=== PATIENT | female | born 1945 | race Hispanic/Latino ===

== ENCOUNTER 2018-04-02 07:52 | Emergency (ER) | payer MEDICARE ==
[~2018-04-02] VITALS: Ht 162.6 cm; Wt 90.7 kg
[~2018-04-02 07:52] MED LIST: ASPIRIN81 M2 PO; GLYBURIDE2.5 MG PO; LOSARTAN-HCTZ1 EACH PO; NITROSTAT0.4 MG PO; PENTOXIFYLLINE400 MG PO; Z.0.GLYBURIDE5 MG PO; Z.0.LEVOTHYROXINE75 PO; Z.0.LISINOPRIL5 MG; Z.0.PLAVIX75 MG PO; Z.0.SIMVASTATIN10 MG
--- OUTSIDE RECORDS SUMMARY | 2018-04-02 07:54 | XMS REPORT ---
Author [facility] Address Unknown Phone Unavailable Care Team Providers Care Engraver Name Role Phone RAVI ALEMAN Unavailable Unavailable Problems This patient has no known problems. Allergies, Adverse Reactions, Alerts This patient has no known allergies or adverse reactions. Medications This patient has no known medications. Results Test Description Test Time Test Comments Text Results Atomic Results Result Comments CHEST 2 VIEWS [place] [address] Patient Name: GIANNI FLANAGAN MR #: [id number] : 1945 Age/Sex: 72/F Req # : [id number] Adm Physician: Ordered by: RAVI ALEMAN MD Report #: [id number] Location: RAD Room/Bed: Procedure: [id number] DX/CHEST 2 VIEWS Exam Date: 07/18/17 Exam Time: 1745 REPORT STATUS: Signed PROCEDURE: Frontal and lateral views of the chest. COMPARISON: Chest 2 views 12/01/2011. INDICATIONS: COUGH. MID CHEST PAIN FINDINGS: Lines/tubes: None. Lungs: The lungs are well inflated and clear. There is no evidence of pneumonia or pulmonary edema. Pleura: There is no pleural effusion or pneumothorax. Heart and mediastinum: The heart and the mediastinum are normal. Atherosclerotic calcifications. Bones: No acute bony abnormality. Degenerative changes of the thoracic spine. Soft tissues: Surgical clips are present in the neck. IMPRESSION: No acute radiographic abnormality. Dictated by: Tasneem Moura M.D. on 07/18/2017 at 18:16 Electronically approved by: Tasneem Moura M.D. on 07/18/2017 at 18:16 Dictated By: TASNEEM MOURA MD 15 COPY TO: RAVI ALEMAN MD
[2018-04-02] MEDS ORDERED: PANTOPRAZOLE 40 MG 10ML VIAL IV STA (08:19)
[2018-04-02] MEDS ORDERED: SODIUM CHLORIDE 0.9% 1000ML 1,000 ML IV STA (08:19)
[2018-04-02] MEDS ORDERED: ONDANSETRON HCL 4 MG ORAL DISINTEGRATING TAB PO ONE (08:30)
--- NOTE | 2018-04-02 09:12 | Diagnostic Imaging Report ---
EXAM: XR CHEST 1 VIEW DATE: 04/02/2018 8:19 AM INDICATION: Pain COMPARISON: None FINDINGS: Lines and Tubes: None Heart and Mediastinum: No acute findings. Lungs and Pleura: No acute findings. Bones and Soft Tissues: No acute findings. IMPRESSION: 1. No acute cardiopulmonary findings. Signed by: Dr. Carlos Alberto Lo MD on 04/02/2018 9:08 AM
[2018-04-02 10:08] LABS: BASOPHILS % 0.7 % (0.0-1.0); EOSINOPHILS # (AUTO) 0.5 (0.0-0.4); EOSINOPHILS % 8.1 % (0.0-6.0); HEMATOCRIT 40.2 % (34.2-44.1); HEMOGLOBIN 13.2 g/dL (12.0-16.0); LYMPHOCYTES # (AUTO) 1.7 (1.0-3.2); LYMPHOCYTES % 27.2 % (18.0-39.1); MEAN CORPUSCULAR HGB CONC 32.8 g/dL (31-35); MEAN CORPUSCULAR VOLUME 85.2 fL (81-99); MONOCYTES # (AUTO) 0.4 (0.2-0.8); MONOCYTES % 6.8 % (4.4-11.3); NEUTROPHILS # (AUTO) 3.5 (2.1-6.9); NEUTROPHILS % 56.9 % (38.7-80.0); PLATELET COUNT 153 x10e3/uL (140-360); RED BLOOD COUNT 4.72 x10e6/uL (3.6-5.1); RED CELL DISTRIBUTION WIDTH 13.6 % (11.7-14.4)
[2018-04-02 10:23] LABS: INR 1.1; PROTHROMBIN TIME 13.4 seconds (11.9-14.5)
[2018-04-02 10:24] LABS: PARTIAL THROMBOPLASTIN TIME 28.9 seconds (23.8-35.5)
[2018-04-02 10:36] LABS: ALBUMIN 3.3 g/dL (3.5-5.0); ALBUMIN/GLOBULIN RATIO 0.9 (0.8-2.0); ANION GAP 13.2 mmol/L (8-16); CALCIUM 9.7 mg/dL (8.4-10.2); CREATININE, SERUM 1.12 mg/dL (0.57-1.11); POTASSIUM 4.2 mmol/L (3.5-5.1)
[2018-04-02 10:43] LABS: CREATINE KINASE MB 3.8 ng/mL (0-5.0)
[2018-04-02] MEDS ORDERED: DIATRIZOATE MEGL/DIATRIZOA SOD 30 ML BTL PO ONE (11:12)
--- NOTE | 2018-04-02 12:41 | Diagnostic Imaging Report ---
EXAM: CT Abdomen and Pelvis WITHOUT contrast INDICATION: COMPARISON: None. TECHNIQUE: Abdomen and Pelvis was scanned utilizing a multidetector helical scanner without the use of IV contrast. Coronal and sagittal reformations were obtained. IV CONTRAST: None COMPLICATIONS: None RADIATION DOSE: Total DLP: 711 mGy*cm Estimated effective dose: (DLP x 0.015 x size factor) mSv CTDIvol has been reviewed. It is below the limits set by the Radiation Protocol Committee (RPC). FINDINGS: Abdomen: Lung Bases: Atelectasis lung bases. Advanced coronary artery vascular calcifications. Solid Organs: Ill-defined area of decreased attenuation posterior right hepatic lobe best seen axial image 46. Nonenhanced images of adrenals, spleen, and pancreas unremarkable. No renal or ureteral calculi. Upper GI Tract: No small bowel obstructive changes. Vascularity: Advanced aortic and mesenteric vascular calcifications. Lymph Nodes: No suspicious adenopathy. Other: Small fat-containing umbilical hernia. Right iliopsoas atrophic. Pelvis: Bladder: Mild wall thickening. Other: Within limitations of nonenhanced CT, uterus and adnexa grossly unremarkable. Colon: There are a few scattered diverticula with no CT evidence of diverticulitis. Appendix not inflamed. Bones: Degenerative changes, most notably L2-3 endplates. IMPRESSION: 1. No definite acute finding. 2. Advanced vascular calcifications in the coronary arteries, abdominal aorta, and mesenteric arteries. 3. Diverticulosis. 4. Ill-defined hypodensity right hepatic lobe likely similar to 02/10/2012 exam. 5. Interval development right iliopsoas atrophy, etiology uncertain. 6. Mild thickening urinary bladder wall likely due to nondistention. Correlation with urinalysis recommended. Signed by: Dr. Carlos Alberto Lo MD on 04/02/2018 12:37 PM
[2018-04-02 13:25] LABS: BILIRUBIN,URINE NEGATIVE (NEGATIVE); CLARITY,URINE CLEAR (CLEAR); COLOR,URINE YELLOW (YELLOW); KETONES,URINE NEGATIVE (NEGATIVE); LEUKOCYTE ESTERASE ,URINE NEGATIVE (NEGATIVE); NITRITE,URINE NEGATIVE (NEGATIVE); PROTEIN,URINE DIPSTICK NEGATIVE (NEGATIVE); URINE UROBILINOGEN 0.2 mg/dL (0.2 - 1)
[2018-04-02 13:33] LABS: EPITHELIAL CELLS,URINE MODERATE /LPF; WBC,URINE (MAN) 0-5 /HPF (0-5)
[2018-04-02 14:32] VITALS: BP 168/74
== END 2018-04-02 14:44 | disposition home or self-care (01) ==
LOC: ER 07:52
DX: R10.30 Lower abdominal pain, unspecified (principal); R11.0 Nausea; E11.9 Type 2 diabetes mellitus without complications; I51.9 Heart disease, unspecified
CPT/HCPCS: 36415; 71045; 74176; 80053; 81001; 82150; 82550; 82553; 83690; 84484; 85025; 85610; 85730; 87086; 93005; 99284; J7030

== ENCOUNTER 2019-03-10 10:09 | Emergency (ER) | payer MEDICARE ==
--- OUTSIDE RECORDS SUMMARY | 2019-03-10 10:12 | XMS REPORT | Continuity of Care Document ---
Author Author [facility] Interface Address Unknown Phone Unavailable Problems Problem Status Onset Date Classification Date Reported Comments Source 729.5 PAIN IN LIMB Active 05/01/2013 [facility] ABDOMINAL PAIN Active 08/21/2012 [facility] Ankle pain Active Problem 01/04/2016 [facility] CAD Active Problem 01/04/2016 [facility] Leg swelling Active Problem 01/04/2016 [facility] Type 2 diabetes mellitus with hyperglycemia Active Problem 01/04/2016 [facility] Diabetic neuropathy Active Problem 01/04/2016 [facility] Recurrent UTI Active Problem 01/04/2016 [facility] Hypertension Active Problem 01/04/2016 [facility] Urinary frequency Active Problem 01/04/2016 [facility] Hyperlipidemia Active Problem 01/04/2016 [facility] Hypothyroidism Active Problem 01/04/2016 [facility] Vulvar candidiasis Active Diagnosis 01/03/2016 [facility] Medications Medication Details Route Status Patient Instructions Ordering Provider Order Date Source Nitrofurantoin as directed Orally Active 100 MG Orally twice a day Mal 01/03/2016 [facility] Nystatin 1 application to affected area Externally Active 338744 UNIT/GM Externally Twice a day 01/01/2016 [facility] Levemir Flexpen 10 units Subcutaneous Active 100 UNIT/ML Subcutaneous every morning 01/01/2016 [facility] Levothyroxine Sodium 1 tablet Orally Active 25 MCG Orally Once a day 12/10/2015 [facility] Invokamet 1 tablet with meals Orally Active 50-1000 MG Orally Twice a day 12/10/2015 [facility] Gabapentin 1 capsule Orally Active 300 MG Orally twice a day (bid) 12/10/2015 [facility] Atorvastatin Calcium 1 tablet Orally Active 40 mg Orally Once a day 12/10/2015 [facility] Levofloxacin 1 tablet Orally Active 500 MG Orally Once a day 12/07/2015 [facility] Lisinopril-Hydrochlorothiazide 1 tablet Orally Active 10-12.5 MG Orally Once a day 12/03/2015 [facility] Lisinopril 5 Mg Tablet, Active 09/01/2013 [facility] Simvastatin 10 Mg Tablet, Active 09/01/2013 [facility] ciprofloxacin 500 mg oral tablet 500 mg, 1 tab, PO, Q12H, 6 tab, Substitution Allowed, TAB PO Active [facility] 08/22/2012 [facility] influenza virus vaccine, inactivated 0.5 ml, Route: IM, Drug form: INJ, ONCE, Start date: 12/27/06 7:23:00, Stop date: 12/27/06 7:23:00 IM No Longer Active [facility]ent [facility] 0.5 ml, Route: IM, Drug Form: INJ, ONCE, Start date: 12/27/06 7:23:00, Stop date: 12/27/06 7:23:00 IM No Longer Active [facility] Aspirin 81 Mg Tablet Daily Active [facility] Clopidogrel Bisulfate (Plavix) 75 Mg Tablet Daily Active [facility] Glyburide 2.5 Mg Tablet Bedtime Active [facility] Glyburide 5 Mg Tablet Daily Active 1 1/2 TAB QAM [facility] Levothyroxine Sodium 75 Mcg Tablet Daily Active [facility] Losartan/Hydrochlorothiazide (Losartan-Hctz 50-12.5 Mg Tab) 1 Each Tablet Daily Active [facility] Nitroglycerin (Nitrostat) 0.4 Mg Tab.subl as needed Active [facility] Pentoxifylline 400 Mg Tablet.er Twice A Day Active [facility] Allergies, Adverse Reactions, Alerts Substance Category Reaction Severity Reaction type Status Date Reported Comments Source penicillin Adverse Reaction Info Not Available Adverse Reaction Active 01/01/2016 [facility] Penicillin RASH Mild Allergy to Substance Active 04/02/2018 [facility] Immunizations Immunization Date Given Site Status Last Updated Comments Source pneumococcal 23-valent vaccine<sup>1</sup> 12/27/2006 Not Given Tellez 1Result Comment: states last time she had a vaccine it made her sick. Refused despite urging. CHLOÉ Ellis influenza virus vaccine, inactivated 12/27/2006 Not Given Tellez CHLOÉ Ellis Results Order Name Results Value Reference Range Date Interpretation Comments Source Activated partial thromboplastin time (aPTT) in platelet poor plasma bycoagulation assay Activated partial thromboplastin time (aPTT) in platelet poor plasma bycoagulation assay 28.9 23.8 - 35.5 04/02/2018 [facility] Automated blood basophil count (count/volume) Automated blood basophil count (count/volume) 0.0 0.0 - 0.1 04/02/2018 [facility] Automated blood basophil count as percentage of total leukocytes Automated blood basophil count as percentage of total leukocytes 0.7 0.0 - 1.0 04/02/2018 [facility] Automated blood eosinophil count Automated blood eosinophil count 0.5 0.0 - 0.4 04/02/2018 [facility] Automated blood eosinophil count as percentage of total leukocytes Automated blood eosinophil count as percentage of total leukocytes 8.1 0.0 - 6.0 04/02/2018 [facility] Automated blood hematocrit (volume fraction) Automated blood hematocrit (volume fraction) 40.2 34.2 - 44.1 04/02/2018 [facility] Automated blood lymphocyte count as percentage ot total leukocytes Automated blood lymphocyte count as percentage ot total leukocytes 27.2 18.0 - 39.1 04/02/2018 [facility] Automated blood monocyte count as percentage of total leukocytes Automated blood monocyte count as percentage of total leukocytes 6.8 4.4 - 11.3 04/02/2018 [facility] Automated blood neutrophil count Automated blood neutrophil count 3.5 2.1 - 6.9 04/02/2018 [facility] Automated blood platelet count (count/volume) Automated blood platelet count (count/volume) 153 140 - 360 04/02/2018 [facility] Automated blood segmented neutrophil count as percentage of total leukocytes Automated blood segmented neutrophil count as percentage of total leukocytes 56.9 38.7 - 80.0 04/02/2018 [facility] Automated erythrocyte mean corpuscular hemoglobin (mass per erythrocyte) Automated erythrocyte mean corpuscular hemoglobin (mass per erythrocyte) 28.0 28 - 32 04/02/2018 [facility] Automated erythrocyte mean corpuscular hemoglobin concentration measurement (mass/volume) Automated erythrocyte mean corpuscular hemoglobin concentration measurement (mass/volume) 32.8 31 - 35 04/02/2018 [facility] Automated erythrocyte mean corpuscular volume Automated erythrocyte mean corpuscular volume 85.2 81 - 99 04/02/2018 [facility] Blood erythrocytes automated count (number/volume) Blood erythrocytes automated count (number/volume) 4.72 3.6 - 5.1 04/02/2018 [facility] Blood hemoglobin measurement (moles/volume) Blood hemoglobin measurement (moles/volume) 13.2 12.0 - 16.0 04/02/2018 [facility] Blood leukocytes automated count (number/volume) Blood leukocytes automated count (number/volume) 6.14 4.8 - 10.8 04/02/2018 [facility] Blood lymphocytes count (number/volume) Blood lymphocytes count (number/volume) 1.7 1.0 - 3.2 04/02/2018 [facility] Blood monocytes automated count (number/volume) Blood monocytes automated count (number/volume) 0.4 0.2 - 0.8 04/02/2018 [facility] Estimated glomerular filtration rate (GFR) determination Estimated glomerular filtration rate (GFR) determination 48 60 04/02/2018 [facility] Glucose measurement Glucose measurement 194 74 - 118 04/02/2018 [facility] INR in Platelet poor plasma by Coagulation assay INR in Platelet poor plasma by Coagulation assay 1.10 04/02/2018 [facility] Plasma globulin measurement (mass/volume) Plasma globulin measurement (mass/volume) 3.6 2.3 - 3.5 04/02/2018 [facility] Prothrombin time (PT) in platelet poor plasma by coagulation assay Prothrombin time (PT) in platelet poor plasma by coagulation assay 13.4 11.9 - 14.5 04/02/2018 [facility] Serum or plasma alanine aminotransferase measurement (enzymatic activity/volume) Serum or plasma alanine aminotransferase measurement (enzymatic activity/volume) 13 0 - 55 04/02/2018 [facility] Serum or plasma albumin measurement (mass/volume) Serum or plasma albumin measurement (mass/volume) 3.3 3.5 - 5.0 04/02/2018 [facility] Serum or plasma albumin/globulin mass ratio Serum or plasma albumin/globulin mass ratio 0.9 0.8 - 2.0 04/02/2018 [facility] Serum or plasma alkaline phosphatase measurement (enzymatic activity/volume) Serum or plasma alkaline phosphatase measurement (enzymatic activity/volume) 89 40 - 150 04/02/2018 [facility] Serum or plasma amylase measurement (enzymatic activity/volume) Serum or plasma amylase measurement (enzymatic activity/volume) 45 25 - 125 04/02/2018 [facility] Serum or plasma anion gap Serum or plasma anion gap 13.2 8 - 16 04/02/2018 [facility] Serum or plasma calcium measurement (mass/volume) Serum or plasma calcium measurement (mass/volume) 9.7 8.4 - 10.2 04/02/2018 [facility] Serum or plasma carbon dioxide, total measurement (moles/volume) Serum or plasma carbon dioxide, total measurement (moles/volume) 28 22 - 29 04/02/2018 [facility] Serum or plasma chloride measurement (moles/volume) Serum or plasma chloride measurement (moles/volume) 101 98 - 107 04/02/2018 [facility] Serum or plasma creatine kinase MB measurement (mass/volume) Serum or plasma creatine kinase MB measurement (mass/volume) 3.80 0 - 5.0 04/02/2018 [facility] Serum or plasma creatine kinase measurement (enzymatic activity/volume) Serum or plasma creatine kinase measurement (enzymatic activity/volume) 103 29 - 168 04/02/2018 [facility] Serum or plasma creatinine measurement (mass/volume) Serum or plasma creatinine measurement (mass/volume) 1.12 0.57 - 1.11 04/02/2018 [facility] Serum or plasma lipase measurement (enzymatic activity/volume) Serum or plasma lipase measurement (enzymatic activity/volume) 20 8 - 78 04/02/2018 [facility] Serum or plasma potassium measurement (moles/volume) Serum or plasma potassium measurement (moles/volume) 4.2 3.5 - 5.1 04/02/2018 [facility] Serum or plasma protein measurement (mass/volume) Serum or plasma protein measurement (mass/volume) 6.9 6.5 - 8.1 04/02/2018 [facility] Serum or plasma sodium measurement (moles/volume) Serum or plasma sodium measurement (moles/volume) 138 136 - 145 04/02/2018 [facility] Serum or plasma total bilirubin measurement (mass/volume) Serum or plasma total bilirubin measurement (mass/volume) 1.2 0.2 - 1.2 04/02/2018 [facility] Serum or plasma urea nitrogen measurement (mass/volume) Serum or plasma urea nitrogen measurement (mass/volume) 22 7 - 26 04/02/2018 [facility] Serum or plasma urea nitrogen/creatinine mass ratio Serum or plasma urea nitrogen/creatinine mass ratio 20 6 - 25 04/02/2018 [facility] Troponin I measurement by highly sensitive enzyme immunoassay Troponin I measurement by highly sensitive enzyme immunoassay 0.079 0 - 0.300 04/02/2018 [facility] Red Cell Distribution Width 13.6 11.7 - 14.4 04/02/2018 [facility] IM GRANULOCYTES % 0.3 0.0 - 1.0 04/02/2018 [facility] Absolute Immature Granulocyte (auto 0.02 0 - 0.1 04/02/2018 [facility] Aspartate Amino Transf (AST/SGOT) 19 5 - 34 04/02/2018 [facility] Automated urine sediment leukocyte count by microscopy (number/high power field) Automated urine sediment leukocyte count by microscopy (number/high power field) null 0 - 5 04/02/2018 [facility] Bacteria detection in urine sediment by light microscopy Bacteria detection in urine sediment by light microscopy NONE NONE 04/02/2018 [facility] Epithelial cells detection in urine sediment by light microscopy Epithelial cells detection in urine sediment by light microscopy MODERATE NONE 04/02/2018 [facility] Erythrocytes detection in urine sediment by light microscopy Erythrocytes detection in urine sediment by light microscopy NONE 0 - 5 04/02/2018 [facility] Specific gravity of Urine by Test strip Specific gravity of Urine by Test strip 1.025 1.010 - 1.025 04/02/2018 [facility] Urine clarity Urine clarity CLEAR CLEAR 04/02/2018 [facility] Urine color determination Urine color determination YELLOW YELLOW 04/02/2018 [facility] Urine erythrocytes detection Urine erythrocytes detection NEGATIVE NEGATIVE 04/02/2018 [facility] Urine glucose detection Urine glucose detection NEGATIVE NEGATIVE 04/02/2018 [facility] Urine ketones detection by automated test strip Urine ketones detection by automated test strip NEGATIVE NEGATIVE 04/02/2018 [facility] Urine leukocyte esterase detection by dipstick Urine leukocyte esterase detection by dipstick NEGATIVE NEGATIVE 04/02/2018 [facility] Urine nitrite detection Urine nitrite detection NEGATIVE NEGATIVE 04/02/2018 [facility] Urine pH measurement by automated test strip Urine pH measurement by automated test strip 6 5 - 7 04/02/2018 [facility] Urine protein measurement by test strip (mass/volume) Urine protein measurement by test strip (mass/volume) NEGATIVE NEGATIVE 04/02/2018 [facility] Urine total bilirubin measurement (mass/volume) Urine total bilirubin measurement (mass/volume) NEGATIVE NEGATIVE 04/02/2018 [facility] Urine urobilinogen measurement by test strip (mass/volume) Urine urobilinogen measurement by test strip (mass/volume) 0.2 0.2 - 1 04/02/2018 [facility] Lower extremity CTA Lower extremity CTA STUDY: Lower extremity CTA COMPARISON: Bilateral lower extremity arterial duplex US 08/06/13. TECHNIQUE: Contiguous axial images were obtained from the lower abdomen to the feet (runoff) after the administration of intravenous contrast. Non-contrast CT was obtained first of the abdomen and pelvis. Coronal and sagittal MIP images as well as surface rendered images were recreated of the arterial phase images, and are available for review. 3D recons were also performed. DLP: [id number] FINDINGS: VASCULAR: Vascular calcifications are noted throughout. Aorta: Patent without stenosis, dissection, or aneurysmal dilation. Celiac artery: Patent without stenosis or aneurysmal dilation. SMA: Patent without stenosis. Renals: Patient with stenosis. DIALLO: Patent without stenosis. Right: Right common iliac artery: Patent without stenosis. Right hypogastric artery: Patent without stenosis. Right external iliac artery: Patent without stenosis. Right common femoral artery: Mild focal stenosis. Right profunda femoris: patent without stenosis. Right SFA: severe mid stenosis, and moderate to severe multifocal distal stenosis. Right popliteal artery: patent without stenosis. Right TP trunk: mild stenosis. Right AT: occludes distally. Right peroneal: patent without stenosis. Right PT: multifocal skip occlusions. Right DP: reconstitutes and is patent. Left: Left common iliac artery: Patent without stenosis. Left external iliac: Patent without stenosis. Left hypogastric: Patent without stenosis. Left profunda femoris artery: patent without stenosis. Left SFA: multifocal mild stenoses in distal SFA. Left popliteal: moderate popliteal stenosis. Left AT: occludes proximally. Left peroneal: patent without stenosis. Left PT: patent without stenosis. Left DP: reconstitutes and is patent. NON-VASCULAR: The leg soft tissues are unremarkable. The bladder and uterus demonstrate no abnormalities. Sigmoid diverticulosis is identified without evidence of diverticulitis. There is nonspecific bladder wall thickening noted. The uterus and adnexa are unremarkable. There is no adenopathy noted. The osseous structures are unremarkable with mild degenerative change seen at the lumbosacral junction. IMPRESSION: 1. Peripheral vascular disease with severe mid-segment and moderate to severe multifocal distal segment stenosis of the right SFA. Distal right AT occlusion, multifocal PT skip-occlusions and a single vessel runoff via the right peroneal artery. 2. Moderate left popliteal artery stenoses and and left AT proximal occlusion. PT and peroneal runoff is seen to the left foot. 08/15/2013 - - Read by: Stoney Silverman Dictated Date/time: 08/15/13 14:55 Electronically Signed by: Stoney Silverman MD 08/15/13 16:13 FINAL REPORT [facility] [employer] CHEMISTRY Lipase Lvl 117 unit/L 73 - 393 08/22/2012 Normal [facility] CHEMISTRY Amylase Lvl 46 unit/L 25 - 115 08/22/2012 Normal [facility] CHEMISTRY Glucose Lvl 91 mg/dL 70 - 99 08/22/2012 Normal 1Interpretive Data: Adult reference range values reflect the clinical guidelines of the [employer]. [facility] CHEMISTRY BUN 23 mg/dL 7 - 22 08/22/2012 HI [facility] CHEMISTRY Total Protein 7.8 g/dL 6.4 - 8.4 08/22/2012 Normal [facility] CHEMISTRY Albumin Lvl 4.0 g/dL 3.5 - 5.0 08/22/2012 Normal [facility] CHEMISTRY Calcium Lvl 8.9 mg/dL 8.5 - 10.5 08/22/2012 Normal [facility] CHEMISTRY Creatinine Lvl 1.3 mg/dL 0.5 - 1.4 08/22/2012 Normal [facility] CHEMISTRY CO2 26 meq/L 24 - 32 08/22/2012 Normal [facility] CHEMISTRY AST 25 unit/L 0 - 37 08/22/2012 Normal [facility] CHEMISTRY Alk Phos 84 unit/L 39 - 136 08/22/2012 Normal [facility] CHEMISTRY Bili Total 0.7 mg/dL 0.2 - 1.3 08/22/2012 Normal [facility] CHEMISTRY ALT 25 unit/L 0 - 65 08/22/2012 Normal [facility] CHEMISTRY Chloride Lvl 96 meq/L 95 - 109 08/22/2012 Normal [facility] CHEMISTRY Potassium Lvl 4.3 meq/L 3.5 - 5.1 08/22/2012 Normal [facility] CHEMISTRY Sodium Lvl 134 meq/L 135 - 145 08/22/2012 LOW [facility] CHEMISTRY Globulin 3.8 g/dL 2.0 - 4.0 08/22/2012 Normal [facility] CHEMISTRY A/G Ratio 1.1 0.7 - 1.6 08/22/2012 Normal [facility] CHEMISTRY AGAP 16.3 meq/L 10.0 - 20.0 08/22/2012 Normal [facility] CHEMISTRY B/C Ratio 18 6 - 25 08/22/2012 Normal [facility] HEMATOLOGY Monocytes # 0.5 K/CMM 0.0 - 0.8 08/22/2012 Normal [facility] HEMATOLOGY Basophils # 0.0 K/CMM 0.0 - 0.2 08/22/2012 Normal [facility] HEMATOLOGY Lymphocytes # 2.2 K/CMM 1.0 - 5.5 08/22/2012 Normal [facility] HEMATOLOGY Eosinophils # 0.1 K/CMM 0.0 - 0.5 08/22/2012 Normal [facility] HEMATOLOGY Segs 70.5 % 45.0 - 75.0 08/22/2012 Normal [facility] HEMATOLOGY Lymphocytes 22.6 % 20.0 - 40.0 08/22/2012 Normal [facility] HEMATOLOGY Monocytes 5.2 % 2.0 - 12.0 08/22/2012 Normal [facility] HEMATOLOGY Segs-Bands # 7.0 K/CMM 1.5 - 8.1 08/22/2012 Normal [facility] HEMATOLOGY Eosinophils 1.4 % 0.0 - 4.0 08/22/2012 Normal [facility] HEMATOLOGY Basophils 0.3 % 0.0 - 1.0 08/22/2012 Normal [facility] HEMATOLOGY Hgb 13.1 g/dL 12.0 - 16.0 08/22/2012 Normal [facility] HEMATOLOGY MCV 87.3 fL 81.0 - 99.0 08/22/2012 Normal [facility] HEMATOLOGY Hct 38.3 % 36.0 - 48.0 08/22/2012 Normal [facility] HEMATOLOGY RBC 4.39 M/CMM 4.20 - 5.40 08/22/2012 Normal [facility] HEMATOLOGY WBC 9.9 K/CMM 3.7 - 10.4 08/22/2012 Normal [facility] HEMATOLOGY RDW 12.5 % 11.5 - 14.5 08/22/2012 Normal [facility] HEMATOLOGY Platelet 172 K/CMM 133 - 450 08/22/2012 Normal [facility] HEMATOLOGY MPV 8.4 fL 7.4 - 10.4 08/22/2012 Normal [facility] HEMATOLOGY MCHC 34.2 g/dL 32.0 - 36.0 08/22/2012 Normal [facility] HEMATOLOGY MCH 29.9 pg 27.0 - 31.0 08/22/2012 Normal [facility] URINALYSIS UA Nitrite Negative (08/21/2012 19:30:00) Negative 08/22/2012 Normal [facility] URINALYSIS UA Leuk Est Negative (08/21/2012 19:30:00) Negative 08/22/2012 Normal [facility] URINALYSIS UA Ketones Negative *NA* (08/21/2012 19:30:00) Negative 08/22/2012 NA [facility] URINALYSIS UA Glucose Negative (08/21/2012 19:30:00) Negative 08/22/2012 Normal [facility] URINALYSIS UA Blood Negative (08/21/2012 19:30:00) Negative 08/22/2012 Normal [facility] URINALYSIS UA Urobilinogen 0.2 EU/dL 0.1 - 1.0 08/22/2012 Normal [facility] URINALYSIS UA pH 5.5 5.0 - 8.0 08/22/2012 Normal [facility] URINALYSIS UA Spec Grav 1.020 <=1.030 08/22/2012 Normal [facility] URINALYSIS UA Color Yellow *NA* (08/21/2012 19:30:00) Yellow 08/22/2012 NA [facility] URINALYSIS UA Turbidity Clear (08/21/2012 19:30:00) Clear 08/22/2012 Normal [facility] URINALYSIS UA Protein Negative (08/21/2012 19:30:00) Negative 08/22/2012 Normal [facility] URINALYSIS UA RBC 1 /HPF 0 - 2 08/22/2012 Normal [facility] URINALYSIS UA Mucus Few /LPF *NA* (08/21/2012 19:30:00) None Seen 08/22/2012 NA [facility] URINALYSIS UA Bacteria Moderate /HPF *ABN* (08/21/2012 19:30:00) None Seen 08/22/2012 ABN [facility] URINALYSIS UA Hyal Cast 17 /LPF 0 - 2 08/22/2012 HI [facility] URINALYSIS UA Sq Epi Moderate /LPF *ABN* (08/21/2012 19:30:00) Few 08/22/2012 ABN [facility] URINALYSIS UA WBC 2 /HPF 0 - 5 08/22/2012 Normal [facility] URINALYSIS UA Bili Negative (08/21/2012 19:30:00) Negative 08/22/2012 Normal [facility] URINALYSIS Micro? Performed (08/21/2012 19:30:00) 08/22/2012 Normal [facility] Vital Signs Vital Sign Value Date Comments Source Weight 198.4 01/01/2016 [facility] Height 63 01/01/2016 [facility] Temperature Oral (F) 98.4 F 01/01/2016 [facility] Heart Rate 70 01/01/2016 [facility] Diastolic (mm Hg) 81 01/01/2016 [facility] Systolic (mm Hg) 138 01/01/2016 [facility] Weight 196.8 12/10/2015 [facility] Height 63 12/10/2015 [facility] Temperature Oral (F) 98.6 F 12/10/2015 [facility] Heart Rate 80 12/10/2015 [facility] Diastolic (mm Hg) 79 12/10/2015 [facility] Systolic (mm Hg) 135 12/10/2015 [facility] Weight 90.909 08/21/2012 [facility] Height 162.56 cm 08/21/2012 [facility] Encounters Location Location Details Encounter Type Encounter Number Reason For Visit Attending Provider ADM Date DC Date Status Source [facility] Emergency [id number] TERES[facility] ORIENTAL ORTHODOX 08/21/2012 08/21/2012 Active [facility] Primary Care Patient here to est care [id number] 12/03/2015 12/03/2015 [facility] Patient here to est care [id number] 12/03/2015 12/03/2015 [facility] Patient here to est care [id number] 12/03/2015 12/03/2015 [facility] Unknown [id number] 12/07/2015 12/07/2015 [facility] Unknown [id number] 12/07/2015 12/07/2015 [facility] Unknown [id number] 12/07/2015 12/07/2015 [facility] patient here for a folloow up on bp [id number] 12/10/2015 12/10/2015 [facility] patient here for a folloow up on bp [id number] 12/10/2015 12/10/2015 [facility] patient here for a folloow up on bp [id number] 12/10/2015 12/10/2015 [facility] Patient here for diabetes medication,states that it is making her sick. [id number] 01/01/2016 01/01/2016 [facility] Patient here for diabetes medication,states that it is making her sick. [id number] 01/01/2016 01/01/2016 [facility] Patient here for diabetes medication,states that it is making her sick. [id number] 01/01/2016 01/01/2016 [facility] Unknown [id number] 01/03/2016 01/03/2016 [facility] Unknown [id number] 01/03/2016 01/03/2016 [facility] Unknown [id number] 01/03/2016 01/03/2016 [facility] [id number] RAVI ALEMAN MD 07/18/2017 [facility] Departed Emergency Room [id number] BOLA REICH MD 04/02/2018 04/02/2018 [facility] Outpatient [id number] 729.5 PAIN IN LIMB JUDY TROY [facility] Procedures Procedure Code Date Perfomer Comments Source CT of abdomen and pelvis without contrast [id number] 04/02/2018 RACHANA [facility] X-ray of chest, two views [id number] 07/18/2017 LOVE [facility]
--- OUTSIDE RECORDS SUMMARY | 2019-03-10 10:12 | XMS REPORT ---
Author Author Tia Resendez Organization [employer] Address Unknown Phone Unavailable Care Team Providers Care Digital Marketing Strategist Name Role Phone Tia Resendez Unavailable Allergies, Adverse Reactions, Alerts Substance Reaction Event Type penicillin Info Not Available Drug Allergy Encounters Encounter Location Date patient here for a folloow up on bp [facility] Dec 10, 2015 Unknown [facility] Jan 03, 2016 Patient here to [facility] Dec 03, 2015 Unknown [facility] Dec 07, 2015 Patient here for diabetes medication,states that it is making her sick. [facility] Jan 01, 2016 Problems Problem Type Condition ICD-9 Code Onset Dates Condition Status Assessment Type 2 diabetes mellitus with hyperglycemia E11.65 Active Problem Leg swelling M79.89 Active Problem Ankle pain M25.579 Active Problem Diabetic neuropathy E11.40 Active Problem Hyperlipidemia E78.5 Active Problem Type 2 diabetes mellitus with hyperglycemia E11.65 Active Problem Urinary frequency R35.0 Active Problem CAD (coronary artery disease) I25.10 Active Problem Hypothyroidism E03.9 Active Problem Hypertension I10 Active Assessment Hyperlipidemia E78.5 Active Assessment CAD (coronary artery disease) I25.10 Active Assessment Colon cancer screening Z12.11 Active Assessment Hypertension I10 Active Assessment Hypothyroidism E03.9 Active Assessment Diabetic neuropathy E11.40 Active Medications Medication Code System Code Instructions Start Date End Date Status Dosage Atorvastatin Calcium [facility] [address]-85 40 mg Orally Once a day Dec 10, 2015 Active 1 tablet Invokamet [facility] [address]-01 50-1000 MG Orally Twice a day Dec 10, 2015 June 07, 2016 Active 1 tablet with meals Levofloxacin [facility] [address]-97 500 MG Orally Once a day Dec 07, 2015 Dec 17, 2015 Active 1 tablet Gabapentin [facility] [address]-75 300 MG Orally twice a day (bid) Dec 10, 2015 Active 1 capsule Levothyroxine Sodium [facility] [address]-33 25 MCG Orally Once a day Dec 10, 2015 Active 1 tablet Lisinopril-Hydrochlorothiazide [facility] [address]-88 10-12.5 MG Orally Once a day Dec 03, 2015 Active 1 tablet Social History Social History Element Qualifiers Date Reported Tobacco Use: . Are you a: never smoker Jan 01, 2016 Use of recreational / street drugs? . Answer: No Jan 01, 2016 Do you have pets? . Status: No Jan 01, 2016 Caffeine intake? . Status: Yes, What type: Coffee, Soft Drinks, How often? Daily Jan 01, 2016 Do you exercise? . Answer: Yes, Type: walking, How often? Daily Jan 01, 2016 Do you drink alcohol? . Status: No Jan 01, 2016 Vital Signs Date/Time: Dec 10, 2015 Weight 196.8 lbs Height 63 in Temperature 98.6 F Cardiac Monitoring Heart Rate 80 /min Blood Pressure Diastolic 79 mm Hg Blood Pressure Systolic 135 mm Hg Summary Purpose [employer] Submission
--- OUTSIDE RECORDS SUMMARY | 2019-03-10 10:12 | XMS REPORT ---
Author Author Tia Resendez Organization [employer] Address Unknown Phone Unavailable Care Team Providers Care Manager Adobe Name Role Phone Tia Resendez Unavailable Encounters Encounter Location Date patient here for a folloow up on bp [facility] Dec 10, 2015 Unknown [facility] Jan 03, 2016 Patient here to [facility] Dec 03, 2015 Unknown [facility] Dec 07, 2015 Patient here for diabetes medication,states that it is making her sick. [facility] Jan 01, 2016 Problems Problem Type Condition ICD-9 Code Onset Dates Condition Status Problem Ankle pain M25.579 Active Problem CAD (coronary artery disease) I25.10 Active Problem Leg swelling M79.89 Active Problem Type 2 diabetes mellitus with hyperglycemia E11.65 Active Problem Diabetic neuropathy E11.40 Active Problem Recurrent UTI N39.0 Active Problem Hypertension I10 Active Problem Urinary frequency R35.0 Active Problem Hyperlipidemia E78.5 Active Problem Hypothyroidism E03.9 Active Medications Medication Code System Code Instructions Start Date End Date Status Dosage Nitrofurantoin [facility] [address]-98 100 MG Orally twice a day Jan 03, 2016 Active as directed Social History Social History Element Qualifiers Date [...] alcohol? . Status: No Jan 01, 2016 Summary Purpose [employer] Submission
--- OUTSIDE RECORDS SUMMARY | 2019-03-10 10:12 | XMS REPORT | CCD ---
Author Author Auto Generated Organization [facility] Address Unknown Phone Unavailable Care Team Providers Care Salt Cutter Name Role Phone Theresa Velasquez CP Allergies, Adverse Reactions, Alerts Substance Reaction Status penicillin Active Medications Medication Instructions Start Date End Date Status influenza virus 0.5 ml, Route: IM, Drug form: INJ, 12/27/2006 12/27/2006 Completed vaccine, inactivated ONCE, Start date: 12/27/06 7:23:00, Stop date: 12/27/06 7:23:00 pneumococcal 0.5 ml, Route: IM, Drug Form: INJ, 12/27/2006 12/27/2006 Completed 23-valent vaccine ONCE, Start date: 12/27/06 7:23:00, Stop date: 12/27/06 7:23:00 ciprofloxacin 500 mg 500 mg, 1 tab, PO, Q12H, 6 tab, 08/21/2012 08/24/2012 Ordered oral tablet Substitution Allowed, TAB Immunizations Vaccine Date Status influenza virus vaccine, inactivated 12/27/2006 Not Done pneumococcal 23-valent vaccine1 12/27/2006 Not Done 1Result Comment: states last time she had a vaccine it made her sick. Refused despite urging. Vital Signs Most recent to oldest [Reference Range]: 1 Height 162.56 cm (08/21/2012 18:44:00) Weight 90.909 kg (08/21/2012 18:44:00) Results URINALYSIS Most recent to oldest [Reference Range]: 1 UA Turbidity [Clear] Clear (08/21/2012 19:30:00) UA Color [Yellow] Yellow *NA* (08/21/2012 19:30:00) UA pH [5.0-8.0] 5.5 (08/21/2012 19:30:00) UA Spec Grav [<=1.030] 1.020 (08/21/2012 19:30:00) UA Glucose [Negative] Negative (08/21/2012 19:30:00) UA Blood [Negative] Negative (08/21/2012 19:30:00) UA Ketones [Negative] Negative *NA* (08/21/2012 19:30:00) UA Protein [Negative] Negative (08/21/2012 19:30:00) UA Urobilinogen [0.1-1.0 EU/dL] 0.2 EU/dL (08/21/2012 19:30:00) UA Bili [Negative] Negative (08/21/2012 19:30:00) UA Leuk Est [Negative] Negative (08/21/2012 19:30:00) UA Nitrite [Negative] Negative (08/21/2012 19:30:00) UA WBC [0-5 /HPF] 2 /HPF (08/21/2012:30:00) UA RBC [0-2 /HPF] 1 /HPF (08/21/2012 19:30:00) UA Bacteria [None Seen /HPF] Moderate /HPF *ABN* (08/21/2012 19:30:00) UA Sq Epi [Few /LPF] Moderate /LPF *ABN* (08/21/2012 19:30:00) UA Hyal Cast [0-2 /LPF] 17 /LPF *HI* (08/21/2012 19:30:00) UA Mucus [None Seen /LPF] Few /LPF *NA* (08/21/2012 19:30:00) Micro? Performed (08/21/2012 19:30:00) CHEMISTRY Most recent to oldest [Reference Range]: 1 Sodium Lvl [135-145 mEq/L] 134 mEq/L *LOW* (08/21/2012 20:34:00) Potassium Lvl [3.5-5.1 mEq/L] 4.3 mEq/L (08/21/2012 20:34:00) Chloride Lvl [95-109 mEq/L] 96 mEq/L (08/21/2012 20:34:00) CO2 [24-32 mEq/L] 26 mEq/L (08/21/2012 20:34:00) AGAP [10.0-20.0 mEq/L] 16.3 mEq/L (08/21/2012 20:34:00) Creatinine Lvl [0.5-1.4 mg/dL] 1.3 mg/dL (08/21/2012 20:34:00) BUN [7-22 mg/dL] 23 mg/dL *HI* (08/21/2012:34:00) B/C Ratio [6-25] 18 (08/21/2012 20:34:00) Glucose Lvl [70-99 mg/dL] 91 mg/dL 1 (08/21/2012:34:00) Total Protein [6.4-8.4 g/dL] 7.8 g/dL (08/21/2012:34:00) Albumin Lvl [3.5-5.0 g/dL] 4.0 g/dL (08/21/2012:34:00) Globulin [2.0-4.0 g/dL] 3.8 g/dL (08/21/2012:34:00) A/G Ratio [0.7-1.6] 1.1 (08/21/2012:34:00) Calcium Lvl [8.5-10.5 mg/dL] 8.9 mg/dL (08/21/2012 20:34:00) ALT [0-65 unit/L] 25 unit/L (08/21/2012:34:00) AST [0-37 unit/L] 25 unit/L (08/21/2012:34:00) Alk Phos [39-136 unit/L] 84 unit/L (08/21/2012:34:00) Bili Total [0.2-1.3 mg/dL] 0.7 mg/dL (08/21/2012:34:00) Amylase Lvl [25-115 unit/L] 46 unit/L (08/21/2012:34:00) Lipase Lvl [73-393 unit/L] 117 unit/L (08/21/2012:34:00) 1Interpretive Data: Adult reference range values reflect the clinical guidelines of the [employer]. HEMATOLOGY Most recent to oldest [Reference Range]: 1 WBC [3.7-10.4 K/CMM] 9.9 K/CMM (08/21/2012 20:34:00) RBC [4.20-5.40 M/CMM] 4.39 M/CMM (08/21/2012 20:34:00) Hgb [12.0-16.0 g/dL] 13.1 g/dL (08/21/2012 20:34:00) Hct [36.0-48.0 %] 38.3 % (08/21/2012 20:34:00) MCV [81.0-99.0 fL] 87.3 fL (08/21/2012 20:34:00) MCH [27.0-31.0 pg] 29.9 pg (08/21/2012 20:34:00) MCHC [32.0-36.0 g/dL] 34.2 g/dL (08/21/2012:34:00) RDW [11.5-14.5 %] 12.5 % (08/21/2012 20:34:00) Platelet [133-450 K/CMM] 172 K/CMM (08/21/2012:34:00) MPV [7.4-10.4 fL] 8.4 fL (08/21/2012 20:34:00) Segs [45.0-75.0 %] 70.5 % (08/21/2012 20:34:00) Lymphocytes [20.0-40.0 %] 22.6 % (08/21/2012 20:34:00) Monocytes [2.0-12.0 %] 5.2 % (08/21/2012 20:34:00) Eosinophils [0.0-4.0 %] 1.4 % (08/21/2012 20:34:00) Basophils [0.0-1.0 %] 0.3 % (08/21/2012 20:34:00) Segs-Bands # [1.5-8.1 K/CMM] 7.0 K/CMM (08/21/2012 20:34:00) Lymphocytes # [1.0-5.5 K/CMM] 2.2 K/CMM (08/21/2012 20:34:00) Monocytes # [0.0-0.8 K/CMM] 0.5 K/CMM (08/21/2012 20:34:00) Eosinophils # [0.0-0.5 K/CMM] 0.1 K/CMM (08/21/2012 20:34:00) Basophils # [0.0-0.2 K/CMM] 0.0 K/CMM (08/21/2012 20:34:00)
--- OUTSIDE RECORDS SUMMARY | 2019-03-10 10:12 | XMS REPORT | CCD ---
Author Author Auto Generated Organization [facility] [place] Address Unknown Phone Unavailable Care Team Providers Care Powder Blender Name Role Phone Allan Hare CP Allergies, Adverse Reactions, Alerts Substance Reaction Status penicillin Active Medications Medication Instructions Start Date End Date Status influenza virus 0.5 ml, Route: IM, Drug form: INJ, 12/27/2006 12/27/2006 Completed vaccine, inactivated ONCE, Start date: 12/27/06 7:23:00, Stop date: 12/27/06 7:23:00 pneumococcal 0.5 ml, Route: IM, Drug Form: INJ, 12/27/2006 12/27/2006 Completed 23-valent vaccine ONCE, Start date: 12/27/06 7:23:00, Stop date: 12/27/06 7:23:00 Immunizations Vaccine Date Status influenza virus vaccine, inactivated 12/27/2006 Not Done pneumococcal 23-valent vaccine1 12/27/2006 Not Done 1Result Comment: states last time she had a vaccine it made her sick. Refused despite urging.
--- OUTSIDE RECORDS SUMMARY | 2019-03-10 10:12 | XMS REPORT ---
Author Author Tia Resendez Organization [employer] Address Unknown Phone Unavailable Care Team Providers Care Manager Training And Development Name Role Phone Tia Resendez Unavailable Allergies, Adverse Reactions, Alerts Substance Reaction Event Type penicillin Info Not Available Drug Allergy Encounters Encounter Location Date patient here for a folloow up on bp [facility] Dec 10, 2015 Unknown [facility] Jan 03, 2016 Patient here to [facility] Dec 03, 2015 Unknown [facility] Dec 07, 2015 Patient here for diabetes medication,states that it is making her sick. [facility] Jan 01, 2016 Problems Problem [...] Hyperlipidemia E78.5 Active Problem Hypothyroidism E03.9 Active Assessment Colon cancer screening Z12.11 Active Assessment Vulvar candidiasis B37.3 Active Assessment Hypertension I10 Active Assessment Hypothyroidism E03.9 Active Assessment Recurrent UTI N39.0 Active Assessment Diabetic neuropathy E11.40 Active Assessment Hyperlipidemia E78.5 Active Assessment Type 2 diabetes mellitus with hyperglycemia E11.65 Active Medications Medication Code System Code Instructions Start Date End Date Status Dosage Levothyroxine Sodium [facility] [address]-40 25 MCG Orally Once a day Dec 10, 2015 Active 1 tablet Nystatin [facility] [address]-24 216592 UNIT/GM Externally Twice a day Jan 01, 2016 Jan 16, 2016 Active 1 application to affected area Invokamet [facility] [address]-07 50-1000 MG Orally Twice a day Dec 10, 2015 June 07, 2016 Inactive 1 tablet with meals Lisinopril-Hydrochlorothiazide [facility] [address]-10 10-12.5 MG Orally Once a day Dec 03, 2015 Active 1 tablet Gabapentin [facility] [address]-34 300 MG Orally twice a day (bid) Dec 10, 2015 Active 1 capsule Atorvastatin Calcium [facility] [address]-23 40 mg Orally Once a day Dec 10, 2015 Active 1 tablet Levemir Flexpen [facility] [address]-70 100 UNIT/ML Subcutaneous every morning Jan 01, 2016 Active 10 units Social History Social History Element Qualifiers Date [...] No Jan 01, 2016 Vital Signs Date/Time: Jan 01, 2016 Weight 198.4 lbs Height 63 in Temperature 98.4 F Cardiac Monitoring Heart Rate 70 /min Blood Pressure Diastolic 81 mm Hg Blood Pressure Systolic 138 mm Hg Results UA w/ Reflex to Culture UA Bacteria(-None Seen /HPF) Few UA WBC(-0-5 /HPF) >182 UA Sq Epi(-Few /LPF) Moderate UA Mucus(-None Seen /LPF) Few UA Blood(-Negative ) Small UA Bili(-Negative ) Negative UA Hyal Cast(-0-2 /LPF) 1 UA Ketones(-Negative mg/dL) Negative UA Glucose(-Negative mg/dL) Negative UA Protein(-Negative mg/dL) Negative UA Nitrite(-Negative ) Negative UA Urobilinogen(-0.1-1.0 mg/dL) <=1.0 UA RBC(-0-2 /HPF) 3 UA Leuk Est(-Negative ) Large UA Color(-Yellow ) Yellow UA Turbidity(-Clear ) Marked UA Spec Grav(-<=1.030 ) 1.011 UA pH(-5.0-8.0 ) 6.0 Summary Purpose eClinicalWorks Submission
--- NOTE | 2019-03-10 10:26 | NUR ---
PT AT THE WINDOW STATING SHE IS LEAVING THE ER
== END 2019-03-10 10:26 | disposition left against medical advice (07) ==
LOC: ER 10:09
DX: R20.2 Paresthesia of skin (principal)

== ENCOUNTER 2020-01-13 10:17 | Inpatient (IN) | payer MEDICARE ==
[~2020-01-13] VITALS: Ht 162.6 cm; Wt 86.2 kg
[2020-01-13] MEDS ORDERED: SODIUM CHLORIDE 0.9% 1000ML 1,000 ML IV STA (10:32)
[2020-01-13 10:59] LABS: BASOPHILS % 0.5 % (0.0-1.0); EOSINOPHILS # (AUTO) 0.3 (0.0-0.4); EOSINOPHILS % 3.8 % (0.0-6.0); HEMATOCRIT 41.2 % (34.2-44.1); LYMPHOCYTES # (AUTO) 2.1 (1.0-3.2); LYMPHOCYTES % 23.8 % (18.0-39.1); MEAN CORPUSCULAR HGB CONC 31.6 g/dL (31-35); MEAN CORPUSCULAR VOLUME 85.7 fL (81-99); MONOCYTES # (AUTO) 0.7 (0.2-0.8); MONOCYTES % 7.4 % (4.4-11.3); NEUTROPHILS # (AUTO) 5.7 (2.1-6.9); NEUTROPHILS % 64.3 % (38.7-80.0); PLATELET COUNT 190 x10e3/uL (140-360); RED BLOOD COUNT 4.81 x10e6/uL (3.6-5.1); RED CELL DISTRIBUTION WIDTH 14.2 % (11.7-14.4)
[2020-01-13 11:07] LABS: INR 0.96; PROTHROMBIN TIME 13.4 seconds (11.9-14.5)
[2020-01-13 11:08] LABS: PARTIAL THROMBOPLASTIN TIME 28.1 seconds (23.8-35.5)
[2020-01-13] MEDS ORDERED: MEROPENEM 1GM 100 ML IV STA (11:14)
[2020-01-13] MEDS ORDERED: VANCOMYCIN 1GM/NS 250 ML 250 ML IV STA (11:14)
[2020-01-13 11:15] LABS: ALBUMIN/GLOBULIN RATIO 1.1 (0.8-2.0); ANION GAP 13.4 mmol/L (8-16); CALCIUM 9.9 mg/dL (8.4-10.2); CREATININE, SERUM 1.34 mg/dL (0.57-1.11); MAGNESIUM 1.9 MG/DL (1.3-2.1); POTASSIUM 4.4 mmol/L (3.5-5.1)
--- NOTE | 2020-01-13 11:17 | Diagnostic Imaging Report ---
FOOT RIGHT COMPLETE - 3 views HISTORY: Pain pain. Cellulitis of second toe. Osteomyelitis. COMPARISON: None available. FINDINGS: Bones: No acute displaced fracture. Status post amputation of the third toe. Periarticular osteopenia. Osteopenia involving the third and fourth metatarsal heads. Small calcaneal enthesophyte. Joints: Degenerative changes of the first metatarsal joints. Soft tissues: Vascular calcifications. IMPRESSION: No evidence of acute osteomyelitis. If concern remains, consider further evaluation with MRI examination. Signed by: Dr. Garret Pereira M.D. on 01/13/2020 11:15 AM
[2020-01-13 11:22] LABS: CREATINE KINASE MB 3.2 ng/mL (0-5.0)
[2020-01-13 12:43] LABS: BILIRUBIN,URINE NEGATIVE (NEGATIVE); CLARITY,URINE CLEAR (CLEAR); COLOR,URINE YELLOW (YELLOW); KETONES,URINE NEGATIVE (NEGATIVE); LEUKOCYTE ESTERASE ,URINE NEGATIVE (NEGATIVE); NITRITE,URINE NEGATIVE (NEGATIVE); PROTEIN,URINE DIPSTICK NEGATIVE (NEGATIVE); URINE UROBILINOGEN 0.2 mg/dL (0.2 - 1)
[2020-01-13] MEDS ORDERED: MORPHINE SULFATE 2 MG/ML SYR 1ML IV PRN (12:45)
[2020-01-13] MEDS ORDERED: DEXTROSE 50% SYRINGE 50 ML IV PRN ×2 (12:45→16:15)
[2020-01-13 12:47] LABS: WBC,URINE (MAN) 0-5 /HPF (0-5)
[2020-01-13 12:48] LABS: BACTERIA,URINE FEW /HPF; EPITHELIAL CELLS,URINE FEW /LPF; RBC,URINE 0-5 /HPF (0-5)
[2020-01-13] MEDS ORDERED: CLINDAMYCIN PHOS 900MG/ 50ML 50 ML IV SCH (13:00)
[2020-01-13] MEDS ORDERED: MEROPENEM 1GM 100 ML IV SCH (14:00)
[2020-01-13] MEDS ORDERED: MELATONIN 5 MG TABLET PO PRN (15:15)
[2020-01-13] MEDS ORDERED: BENZONATATE 100 MG CAP PO PRN (15:15)
[2020-01-13] MEDS: INSULIN REGULAR, HUMAN 100 UNIT/1 ML 3ML VIAL SQ SCH ×2 (16:30→21:30)
[2020-01-13 16:42] VITALS: BP 128/58
[2020-01-13] MEDS: SODIUM CHLORIDE 0.9% 1000ML 1,000 ML IV SCH (18:04)
[2020-01-13] MEDS: PENTOXIFYLLINE 400 MG TAB CR PO SCH (18:04)
[2020-01-13] MEDS: ENOXAPARIN SOD INJ 40 MG/0.4 ML SYR SC SCH (18:04)
[2020-01-13 20:00] VITALS: BP 149/83
[2020-01-13] MEDS: MEROPENEM 1GM 100 ML IV SCH (20:53)
--- NOTE | 2020-01-13 22:44 | History and Physical ---
CHIEF COMPLAINT: Right foot pain. HISTORY OF PRESENT ILLNESS: A 74-year-old female, very poor historian. 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 She reports several weeks, but is not even exact on that particular date as well. The patient reports right foot pain, erythema, warm to touch. Severe pain, has been ongoing for the last several weeks. During my evaluation, her right foot was warm to touch. Pulses were palpable, but were very erythematic in nature. Did have some small amount of skin peeling on the medial aspect of the right foot. There was no pain on palpation during my examination. I did evaluate her with the nurse present in the ER. The patient is seen and evaluated at bedside on the medical floor. She is currently doing well with no other issues at this time. Vital signs were stable. Her lactic acid was normal as well. REVIEW OF SYSTEMS: Pertinent positives, right foot pain and erythema. The rest of 14-point review of systems are reviewed with the patient and are negative. ALLERGIES: PENICILLIN MEDICATIONS: 1. Plavix 75 mg daily. 2. Glimepiride 2.5 mg daily. 3. Levothyroxine 75 mcg daily. 4. Pentoxifylline 400 mg p.o. b.i.d. 5. Aspirin 81 mg daily. 6. Losartan/hydrochlorothiazide 50/12.5 mg one tab p.o. daily. 7. Nitroglycerin, sublingual. PAST MEDICAL HISTORY: Hypertension, severe PAD, CAD, diabetes. PAST SURGICAL HISTORY: She has left heart catheterization in the past with stent placement according to the patient. PAST FAMILY HISTORY: Hypertension and diabetes. SOCIAL HISTORY: No drugs. No alcohol. Does not smoke. Good social support. LABORATORY FINDINGS: Show white count 8.9, hemoglobin 13, hematocrit 41, platelets of 190. Coagulation; PT 13, INR 0.96, PTT 28. Chemistry sodium 135, potassium 4.4, chloride 101, bicarb 25, anion gap of 13. BUN is 25, creatinine of 1.34, glucose is 112, lactic acid 1.2, calcium 9.9, magnesium 1.9, total bilirubin was 0.8. AST 22, ALT 33, alkaline phosphatase 88. CK 118, CK-MB 3.2, troponin 0.048, total protein 7.5, albumin is 4. Urinalysis was found to be negative. MICROBIOLOGY: Blood cultures are pending. IMAGING STUDIES: X-ray of the right foot shows no evidence of acute osteomyelitis. MRI was ordered. PHYSICAL EXAMINATION: VITAL SIGNS: Temperature is 97.8, pulse 72, respiratory rate is 16, blood pressure 154/99, pulse ox 100% on room air. GENERAL: Not in acute distress. Alert and oriented x3. Cooperative on examination. HEENT: Head; normocephalic, atraumatic. Eyes; pupils are equal, round, and reactive to light bilaterally. Extraocular movements intact bilaterally. Throat; no evidence of erythema or exudates in the posterior pharynx. Has poor dentition. NECK: Supple. Good range of motion. PULMONARY: Clear to auscultation bilaterally. No wheezing, no rales, no rhonchi, no crackles appreciated. CARDIOVASCULAR: Positive S1 and S2. No murmurs, rubs, or gallops appreciated. ABDOMEN: Soft, nondistended, and nontender to palpation. Bowel sounds present. MUSCULOSKELETAL: Strength is 5/5 throughout. No evidence of any muscle deficits on examination. SKIN: Intact. Warm to touch. Good cap refill. PSYCHIATRIC: Normal affect and mood. EXTREMITIES: Right foot erythema with good palpable pulses, nontender to palpation. It was warm to touch. It was erythematic in nature. IMPRESSION: 1. Right foot cellulitis, but concerning due to severe peripheral artery disease in nature. 2. Type 2 diabetes. 3. History of coronary artery disease with stents. 4. Hypertension. PLAN: At this time, her right foot is warm to touch, palpable pulses are appreciated. It is nontender to palpation during my examination. It seems to be more likely to have ischemia due to severe PAD in the past as well as the patient reports, but her lactic acid is normal. At this time, we will continue to treat this as a possible cellulitis with IV antibiotics. Blood cultures were collected. I also ordered an arterial Doppler and consulted her cycle liaison as he apparently has worked on her lower extremities in the past. I also consulted Podiatry to come and evaluate this foot as well as Infectious Disease. I will resume all her home medications, but hold her ARB and hydrochlorothiazide intervention with an angiogram, which is most likely. MRI of the right foot has been ordered. I put her on insulin sliding scale. I will go ahead and put her on Lovenox for DVT prophylaxis. She is going to be on a heart-healthy diet. I had a long discussion with the patient at bedside about her overall plan of care and she verbalized understanding and agrees with plan of care. Nurse was present throughout the entire conversation in the emergency room. MD DAMON Brito/MODL /[id number]
[2020-01-14] VITALS (8 sets, daily range): BP systolic 138–160; BP diastolic 63–77
[2020-01-14] MEDS: VANCOMYCIN 1GM/NS 250 ML 250 ML IV SCH ×2 (00:29→13:30)
[2020-01-14] MEDS: MEROPENEM 1GM 100 ML IV SCH ×2 (04:30→11:37)
[2020-01-14] MEDS: SODIUM CHLORIDE 0.9% 1000ML 1,000 ML IV SCH ×2 (05:49→20:30)
[2020-01-14] MEDS ORDERED: LEVOTHYROXINE SODIUM 75 MCG TAB PO SCH (06:00)
[2020-01-14 06:39] LABS: BASOPHILS % 0.6 % (0.0-1.0); EOSINOPHILS # (AUTO) 0.1 (0.0-0.4); EOSINOPHILS % 1.3 % (0.0-6.0); HEMATOCRIT 41.5 % (34.2-44.1); HEMOGLOBIN 12.7 g/dL (12.0-16.0); LYMPHOCYTES # (AUTO) 1.4 (1.0-3.2); LYMPHOCYTES % 18.9 % (18.0-39.1); MEAN CORPUSCULAR HEMOGLOBIN 26.8 pg (28-32); MEAN CORPUSCULAR HGB CONC 30.6 g/dL (31-35); MEAN CORPUSCULAR VOLUME 87.7 fL (81-99); MONOCYTES # (AUTO) 0.6 (0.2-0.8); MONOCYTES % 7.8 % (4.4-11.3); NEUTROPHILS # (AUTO) 5.1 (2.1-6.9); NEUTROPHILS % 70.8 % (38.7-80.0); PLATELET COUNT 170 x10e3/uL (140-360); RED BLOOD COUNT 4.73 x10e6/uL (3.6-5.1); RED CELL DISTRIBUTION WIDTH 14.2 % (11.7-14.4)
--- NOTE | 2020-01-14 06:54 | NUR ---
RECEIVED BEDSIDE SHIFT REPORT FROM OFF GOING NURSE. PATIENT IS IN STABLE CONDITION, NO ACUTE DISTRESS NOTED. CALL LIGHT WITHIN REACH. BED IN THE LOWEST POSITION.
[2020-01-14 06:57] LABS: ANION GAP 16.3 mmol/L (8-16); CALCIUM 9.2 mg/dL (8.4-10.2); CREATININE, SERUM 0.99 mg/dL (0.57-1.11); POTASSIUM 4.3 mmol/L (3.5-5.1)
[2020-01-14] MEDS: INSULIN REGULAR, HUMAN 100 UNIT/1 ML 3ML VIAL SQ SCH ×4 (07:30→20:29)
[2020-01-14] MEDS: ASPIRIN 81 MG ENTERIC COATED PO SCH (08:32)
[2020-01-14] MEDS: PENTOXIFYLLINE 400 MG TAB CR PO SCH (08:32)
[2020-01-14] MEDS ORDERED: NON-FORMULARY MEDICATION (Aspirin 81 MG) PO SCH (09:00)
[2020-01-14] MEDS ORDERED: CLOPIDOGREL BISULFATE 75 MG TAB PO SCH (09:00)
[2020-01-14] MEDS ORDERED: NON-FORMULARY MEDICATION (Losartan/Hydrochlorothiazide (Losartan-Hctz 50-12.5 Mg Tab) 1 TA PO SCH (09:00)
[2020-01-14] MEDS ORDERED: LEVOTHYROXINE50 MCG PO (09:31)
[2020-01-14] MEDS ORDERED: LOSARTAN POTASS25 MG PO (09:35)
[2020-01-14] MEDS ORDERED: GLIMEPIRIDE4 MG PO (09:35)
--- NOTE | 2020-01-14 10:27 | Diagnostic Imaging Report ---
MRI of the right forefoot without contrast. History: Infected toe. Cellulitis. Prior third toe infection/amputation Technique: Multiplanar multisequence MRI of the foot without contrast Comparison: Radiographs January 13, 2020 Findings: Limited due to patient motion artifact. Prior amputation of the right third toe with associated postsurgical change. Abnormal soft tissue edema at the distal second toe without associated fluid collection or cortical destruction in the underlying bone. The findings are most likely due to cellulitis. Diffuse muscle atrophy. The visualized neurovascular bundles are intact. Impression: Abnormal soft tissue edema at the distal second toe without associated fluid collection or cortical destruction in the underlying bone. The findings are most likely due to cellulitis. Signed by: Dr. Campos Ferrari M.D. on 01/14/2020 10:25 AM
--- NOTE | 2020-01-14 13:02 | Progress Note ---
DATE: 01/14/2020 Medicine Progress Note SUBJECTIVE: The patient's right foot still very erythematous and red. Still has pain. Several consultants have been consulted to come and evaluate her. She did get her MRI of the foot this morning. OBJECTIVE: VITAL SIGNS: Temperature 97.3, pulse 71, respirations 20, blood pressure 146/69, and pulse ox 99% on room air. GENERAL: No acute distress alert and oriented x3. Cooperative on examination. HEENT: Head, normocephalic and atraumatic. Eyes, pupils are equal, round, and reactive to light bilaterally. Extraocular movements intact bilaterally. NECK: Supple. Good range of motion. THROAT: No evidence of erythema or exudates in the posterior pharynx. Has poor dentition. PULMONARY: Clear to auscultation bilaterally. No wheezing, rales, or rhonchi. No crackles appreciated. CARDIOVASCULAR: Positive S1 and S2. No murmurs, rubs, or gallops. ABDOMEN: Soft, nondistended, and nontender to palpation. Bowel sounds present. MUSCULOSKELETAL: No evidence of any muscle deficits on examination. No weakness appreciated. NEUROLOGIC: Cranial nerves II through XII grossly intact. No evidence of any neurological deficits on exam. SKIN: Intact. Warm to touch. Good cap refill. PSYCHIATRIC: Normal affect and mood. EXTREMITIES: Her right foot very erythematous, it is currently wrapped with gauze, nontender to palpation, but does have pain she reports. LABORATORY DATA: White count is 7.1, hemoglobin 12, hematocrit 41, and platelets of 170,000. Chemistry; sodium 140, potassium 4.3, chloride 107, bicarb 21, anion gap of 16, BUN is 18, and creatinine 0.99. Glucose 79. Calcium is 9.2. LFTs within normal range. IMAGING STUDIES: MRI of the right foot pending. ASSESSMENT: 1. Right foot cellulitis concerning for severe peripheral artery disease. 2. Type 2 diabetes. 3. History of coronary artery disease with stents. 4. Hypertension. PLAN: At this time, continue with IV antibiotics. Pending MRI of the right foot. Podiatry, ID, and Cardiology have been consulted to evaluate further. Likely will need an angiogram of the lower extremities. We will defer to Cardiology. Monitor all cultures. She is on Lovenox for DVT prophylaxis. PT/OT evaluation. Otherwise, we will await final recommendations by the consultants. Discussed with nursing staff. MD DAMON Brito/YURI /[id number]
--- NOTE | 2020-01-14 14:30 | NUR ---
WOUND CARE CONSULT FOR 74 YO FEMALE HX OF CELLULITIS LEFT FOOT, DIABETIC ULCERATIONS GABY 18 CONSERVATIVE PUP STATUS AND INTERVENTIONS AND VISCO MATTRESS LABS: WBC-7.15 HGB_ 12.7 GLUCOSE-79 SKIN ASSESSMENT COMPLETE PATIENT PRESENTS WITH RIGHT 2ND TOE DARKENED AND BRUISED WITH PARTIAL THICKNESS OPENING AT PLANTAR BASE MEASURES 2.5CM X3CM X.1CM LEFT PLANTAR SURFACE HAS 2 CALLUSED ULCER AREAS MEASURING 1CM X1CM RECOMMENDATIONS: NURSING TO CONTINUE TO MAINTAIN CONSERVATIVE PUP STATUS AND INTERVENTIONS AND VISCO MATTRESS NURSING TO CONTINUE TO ASSIST PATIENT OUT OF BED FOR MEALS AND MUCH TOLERATED NURSING TO CONTINUE TO ASSIST PATIENT NEEDED WITH MEALS AND NUTRITIONAL SUPPLEMENTS TO ENSURE PROPER REQUIREMENTS FOR HEALING NURSING TO CONTINUE TO OFFLOAD FEET AND HEELS NEEDED WITH PILLOW SUSPENSION WHEN IN BED NURSING TO CLEAN BASE OF RIGHT FOOT 2ND TOE AND LEFT FOOT PLANTAR SURFACE ULCERATIONS WITH NORMAL SALINE DAILY AND APPLY XEROFORM SATNAM AND COVER WITH 4X4 AND KERLIX SECURE WITH TAPE Addendum: 01/14/20 at 1458 by Gato Douglas RN Amended: Links added.
[2020-01-14] MEDS: CEFTRIAXONE SOD 1 GM/NS 50 ML 50 ML IV SCH (17:14)
[2020-01-14] MEDS: ENOXAPARIN SOD INJ 40 MG/0.4 ML SYR SC SCH (17:14)
--- NOTE | 2020-01-14 18:53 | Consultation ---
DATE OF CONSULTATION: 01/14/2020 Cardiology Consultation Thank you so much for asking us to see this nice lady again in consultation. She is a 74-year-old diabetic, known to have diffuse vascular disease. CHIEF COMPLAINT: She presents to the emergency room on the afternoon of the with a complaint of painful right toes. HISTORY OF PRESENT ILLNESS: She had amputation one of the toes on the right foot sometime in the last year or 2. She cannot tell me exactly when. I have not seen her at that time. She was last in my office in May of 2017. PAST MEDICAL HISTORY: Significant for diffuse vascular disease. She has had carotid endarterectomy. She had stenting of 4 coronary arteries at [facility] on December 02, 2011. She has had angiograms of her legs repeatedly with interventions with angioplasties. The last angiogram that I have was in October 2016, which showed total occlusion of all her post trifurcation vessels in both legs. Cataract surgery in 2014. PERSONAL AND SOCIAL HISTORY: She does not smoke. MEDICATIONS: Recent medications include aspirin 81 mg daily, Glimepiride 4 mg daily, levothyroxine 50 mcg daily, and losartan 25 mg daily. She has used atorvastatin in the past, but it does not appear on her current medications. PHYSICAL EXAMINATION: GENERAL: At this time shows a pleasant, alert woman, sitting in a chair. HEAD, EYES, EARS, NOSE, AND THROAT: Unremarkable. NECK: No jugular venous distention. No bruits. THORAX: Heart sounds S1 and S2 are equal. No murmurs. LUNGS: Clear. ABDOMEN: Protuberant. EXTREMITIES: Shows the right foot to be in bandage. LABORATORY DATA: White count 7.1 and hemoglobin 12.7. BUN 18, creatinine 0.9, and glucose 79. ASSESSMENT: 1. Cellulitis. 2. Peripheral vascular disease. 3. Type 2 adult onset diabetes. 4. Coronary artery disease, clinically stable after stenting. PLAN: Agree with current management of wound care and antibiotics. We will review arterial Doppler scan of the legs with the expectation that there will be no opportunities for interventions. Thank you for asking me to see her in consultation. MD BALTAZAR Gallegos/YURI /[id number] cc: Aimee Dominguez MD
--- NOTE | 2020-01-14 19:32 | NUR ---
Bedside shift report given to oncoming nurse. Patient is resting in bed, no acute distress noted. Denies pain or discomfort at this time. Call light within reach. Bed in the lowest position.
[2020-01-14] MEDS: HYDROCODONE/APAP 5MG-325MG TAB PO PRN (20:27)
--- NOTE | 2020-01-14 23:19 | Consultation ---
DATE OF CONSULTATION: REASON FOR CONSULTATION: Osteomyelitis of her foot. HISTORY OF PRESENT ILLNESS: This patient, who is a very pleasant 74-year-old female, who has history of diabetes mellitus with neuropathy, history of severe peripheral vascular disease, hypothyroidism, hypertension, hypercholesteremia, amputation of her right 3rd toe, comes in after she had 2nd toe this time a few days ago, had bruising, then became red, swollen and pain, came to the emergency room, where she is being admitted. The patient is currently lying in bed comfortably. Son at the bedside. PAST MEDICAL HISTORY: As above. PAST SURGICAL HISTORY: Also as above. ALLERGIES: NKA. SOCIAL HISTORY: There is no smoking, drug abuse, or alcohol abuse. FAMILY HISTORY: Diabetes mellitus. At the present time, the patient is in bed. REVIEW OF SYSTEMS: HEENT: Negative. PULMONARY: Negative. CARDIAC: Negative. : Negative. All within normal limits. PHYSICAL EXAMINATION: GENERAL: She is currently alert, oriented, does not seem to be in acute distress. VITAL SIGNS: Stable, currently afebrile. HEENT: Not icteric. NECK: Supple. CHEST: Clear bilateral. HEART: S1 and S2. No S3, S4, or murmur. ABDOMEN: Soft. Bowel sounds present. No tenderness. EXTREMITIES: There is redness and swelling of the 4th toe. The pulse is extremely weak, very hard for me to sustain. There is redness and swelling of the right foot. IMPRESSION: 1. Trauma to the right foot, cellulitis, concerned about underlying osteomyelitis. 2. Acute kidney injury seems to be better. 3. Peripheral vascular disease. 4. MRI did not reveal osteo. Agree with vancomycin. We will change her to Rocephin 2 g daily. Discontinue meropenem. Observe clinically. Vascular workup as mentioned above, but because of severe peripheral vascular disease and neuropathy, still at risk for losing that toe. We will follow vancomycin trough. Agree with vascular workup. We will see how she will do clinically. I am just concerned because of the severe peripheral vascular disease. Discussed with the family and the patient. MD ITZEL Sadler/YURI /[id number]
[2020-01-15] VITALS (9 sets, daily range): BP systolic 135–173; BP diastolic 60–74
[2020-01-15] MEDS: VANCOMYCIN 1GM/NS 250 ML 250 ML IV SCH ×2 (00:55→11:44)
[2020-01-15 05:42] LABS: BASOPHILS % 0.6 % (0.0-1.0); EOSINOPHILS # (AUTO) 0.4 (0.0-0.4); EOSINOPHILS % 6.2 % (0.0-6.0); HEMATOCRIT 36.8 % (34.2-44.1); HEMOGLOBIN 11.4 g/dL (12.0-16.0); LYMPHOCYTES # (AUTO) 2.3 (1.0-3.2); LYMPHOCYTES % 34.2 % (18.0-39.1); MEAN CORPUSCULAR HEMOGLOBIN 26.9 pg (28-32); MEAN CORPUSCULAR VOLUME 86.8 fL (81-99); MONOCYTES # (AUTO) 0.6 (0.2-0.8); MONOCYTES % 8.5 % (4.4-11.3); NEUTROPHILS # (AUTO) 3.4 (2.1-6.9); NEUTROPHILS % 50.4 % (38.7-80.0); PLATELET COUNT 193 x10e3/uL (140-360); RED BLOOD COUNT 4.24 x10e6/uL (3.6-5.1); RED CELL DISTRIBUTION WIDTH 14.3 % (11.7-14.4)
[2020-01-15 05:58] LABS: ANION GAP 9.4 mmol/L (8-16); CALCIUM 8.8 mg/dL (8.4-10.2); CREATININE, SERUM 0.91 mg/dL (0.57-1.11); POTASSIUM 4.4 mmol/L (3.5-5.1)
[2020-01-15] MEDS: LEVOTHYROXINE SODIUM 50 MCG TAB PO SCH (06:15)
[2020-01-15 06:28] LABS: ERYTHROCYTE SEDIMENTATION RATE 22 mm/hr (0-20)
--- NOTE | 2020-01-15 06:52 | NUR ---
BEDSIDE SHIFT REPORT RECEIVED FROM OFF GOING NURSE. PATIENT IS RESTING IN BED. NO ACUTE DISTRESS NOTED AT THIS TIME. CALL LIGHT WITHIN REACH. BED IN THE LOWEST POSITION.
--- NOTE | 2020-01-15 07:00 | NUR ---
Bedside report and walking rounds completed with oncoming nurse. Patient in bed resting. Call light within reach. No issues or concerns noted.
--- NOTE | 2020-01-15 07:05 | NUR ---
IV TO LEFT FOREARM IS REDDENED, TENDER, INFILTRATED. DISCONTINUED WITH TIP INTACT. NIGHT NURSE ATTEMPTED TO GIVE ACCESS, UNSUCCESSFUL. DAY NURSE ATTEMPTED TO GIVE ACCESS ALSO UNSUCCESSFUL. NOTIFIED SYSTEMS MECHANIC TO ATTEMPT. ALSO NOTIFIED SIMA MORE ABOUT NO IV LINE.
[2020-01-15] MEDS: INSULIN REGULAR, HUMAN 100 UNIT/1 ML 3ML VIAL SQ SCH ×4 (07:30→21:00)
[2020-01-15] MEDS: GLIMEPIRIDE 2 MG TAB PO SCH (08:02)
[2020-01-15] MEDS: LOSARTAN POTASSIUM 25 MG TAB PO SCH (08:02)
[2020-01-15] MEDS: ASPIRIN 81 MG ENTERIC COATED PO SCH (08:02)
--- NOTE | 2020-01-15 09:19 | NUR ---
NOTIFIED DR. INTERIANO OF BEING UNABLE TO GET IV LINE BY NURSES AND POSSIBLY ORDERING A PICC LINE. WAITING ON MD'S RESPONSE.
--- NOTE | 2020-01-15 09:30 | NUR ---
NEW IV LINE GIVEN TO LEFT FOREARM 20G BY ASSOCIATE PROFESSOR OF LIBRARY SCIENCE.
[2020-01-15] MEDS: SODIUM CHLORIDE 0.9% 1000ML 1,000 ML IV SCH ×2 (11:10→21:50)
--- NOTE | 2020-01-15 11:36 | Progress Note ---
DATE: 01/15/2020 SUBJECTIVE: This is a 74-year-old female with past medical history of type 2 diabetes, peripheral neuropathy, peripheral vascular disease, who was seen at the bedside this a.m. and is resting comfortably. She relates improving pain to the right foot. Currently, denies nausea, vomiting, fever, chills, chest pain, shortness of breath. No acute issues overnight. PHYSICAL EXAMINATION: GENERAL: Alert and oriented x3, in no apparent distress. VITAL SIGNS: Today temperature 97.1, heart rate 75, respiratory rate 19, blood pressure 170/73, pulse ox is 97% on room air. PROBLEM FOCUSED ON LOWER EXTREMITY PHYSICAL EXAM: Vascular dorsalis pedis and posterior tibial pulses are nonpalpable in bilateral lower extremities. Capillary refill time is delayed to the 2nd and 3rd digit. There is increase in dusky changes noted to the distal tip of the right 2nd digit. Erythema continues to remain to approximately the level of the midfoot. However, no warmth or fluctuance is noted. NEUROLOGICAL: Sensation is diminished to light touch bilateral. MUSCULOSKELETAL: Right 3rd digit amputation, left hallux valgus with a dorsally contracted digits. DERMATOLOGICAL: Superficial ulceration is noted to the plantar aspect of the 3rd metatarsal head with significant periwound erythema, however, no fluctuant, abscess, or warmth is noted. Hyperkeratotic ulcerations are noted to the plantar aspect of the patient's left first metatarsophalangeal joint and 3rd metatarsophalangeal joint with negative erythema, edema, or warmth. No local acute signs of infection are noted to the left lower extremity. LABORATORY DATA: White blood cell count 6.8, hemoglobin 11.4, hematocrit 36.8, and platelet count is 193. Sedimentation rate is 22. Sodium 141, potassium 4.4, chloride 109, CO2 of 27, BUN 15, creatinine 0.91, glucose 162. MRI, abnormal soft tissue edema, distal 2nd toe without associated fluid collection or cortical destruction and underlying bone. Findings are most likely due to cellulitis. Arterial Dopplers are pending. ASSESSMENT: 1. Right second toe ulceration, cellulitis. 2. Peripheral vascular disease. 3. Type 2 diabetes peripheral neuropathy. 4. Left foot stable ulcerations. PLAN: The patient was seen and evaluated. Discussed condition and treatment options with patient in detail. At this time, we will continue IV antibiotics and local wound care to bilateral lower extremities. Cardiology has been consulted. We will await further recommendations by them, if the patient is amenable to further angioplasty. I had a lengthy discussion with the patient about the new dusky changes to the right 2nd digit. I discussed with the patient since patient already has a history of 3rd digit amputation, recommendation would be for at minimum a transmetatarsal amputation. However, patient needs to be aware that there is a high likelihood of failure to this as well depending on results of arterial Doppler and severe peripheral vascular disease. If the transmetatarsal amputation fails, the patient will possibly need a [id number] amputation. I had lengthy discussion with patient's family above these concerns. We will await for further recommendations from Cardiology. The Podiatry Service will continue to monitor as an inpatient. AKRO Gray/YURI /[id number]
--- NOTE | 2020-01-15 12:01 | Consultation ---
DATE OF CONSULTATION: REASON FOR CONSULTATION: Right foot pain. HISTORY OF PRESENT ILLNESS: This is a 74-year-old female with past medical history of hypertension, coronary artery disease, diabetes, and peripheral vascular disease. The patient relates approximately 2 to 3 onset of redness to the right lower extremity. The patient relates to have a history of a right 3rd toe amputation approximately 1-1/2 years ago and also she has had a history of multiple stentings done to her heart as well as her lower extremities. She relates that the pain has been getting worse over the last several days. The patient relates that her blood sugars are well controlled. She currently denies nausea, vomiting, fever, chills, chest pain, or shortness of breath. PAST MEDICAL HISTORY: 1. Type 2 diabetes with peripheral neuropathy. 2. Hypertension. 3. Coronary artery disease. 4. Peripheral vascular disease. ALLERGIES: PENICILLIN. PAST SURGICAL HISTORY: 1. Heart catheterization. 2. Lower extremity stenting. 3. Right 3rd digit amputation. FAMILY HISTORY: 1. Type 2 diabetes. 2. Hypertension. SOCIAL HISTORY: Denies smoking, drinking, or any illicit drug usage. PHYSICAL EXAMINATION: GENERAL: Alert and oriented x3, in no apparent distress. VITAL SIGNS: Today, temperature 97.1, heart rate 75, respiratory rate 19, blood pressure 170/73, pulse ox 97% on room air. PROBLEM FOCUSED LOWER EXTREMITY PHYSICAL EXAM: Vascular, dorsalis pedis and posterior tibial pulses are nonpalpable to the right lower extremity. The right 2nd and 1st digit show delayed capillary refill time. There is erythema to the level of the midshaft metatarsals to the right lower extremity with no warmth. NEUROLOGICAL: Sensation is diminished to light touch, however, pain on palpation is noted to the right lower extremity. MUSCULOSKELETAL: Right 3rd digit amputation. DERMATOLOGICAL: A superficial ulceration is noted to the plantar aspect of the patient's right foot, sub 3rd metatarsophalangeal joint. There is greater than 2 cm of periwound erythema. However, no fluctuance or warmth is noted to the erythema. LABORATORY DATA: White blood cell count is 6.82, hemoglobin 11.4, hematocrit 36.8, and platelet count is 193. Sedimentation rate is 22, glucose 109. X-rays, two views were taken of the patient's right foot, which showed no evidence of acute osteomyelitis. MRI is recommended. ASSESSMENT: 1. Right foot ulceration, cellulitis. 2. Peripheral vascular disease. 3. Type 2 diabetes with peripheral neuropathy. 4. History of right 3rd digit amputation. PLAN: The patient was seen and evaluated. Discussed condition and treatment options with the patient in detail. At this time, the patient does have erythema extending to the level of the midfoot, however, does not appear to be acute cellulitis, appears to be ischemic in nature. There is delayed capillary refill time to the 1st and 2nd digits. There does not appear to be any deep probing, ulceration, or fluctuant abscess collection. The patient is afebrile with no leukocytosis. At this time, MRI and arterial Dopplers are pending. There is concern for further amputation depending on the results of these exams. The Podiatry Service will continue to monitor. KARO Gray/MODL /[id number]
--- NOTE | 2020-01-15 12:37 | Progress Note ---
DATE: 01/15/2020 Internal Medicine Progress Note SUBJECTIVE: The patient still complains of pain in the foot. No overnight events. I spoke with Cardiology. The patient has severe PAD, truly there is no real intervention needed. The patient has pretty significant bad vessels. Bypass is not an option. The only option per Cardiology is likely amputation. I also spoke with Podiatry in which he has already started talking to the family about amputation. I am not sure if the patient is ready for that at this moment, but initiation has been talked to the patient and the family about possible amputation. PHYSICAL EXAMINATION: VITAL SIGNS: Temperature is 97.1, pulse is 75, respiratory rate is 19, blood pressure is 170/73, pulse ox 97% on room air. GENERAL: No acute distress, alert and oriented x3. Cooperative on examination. HEENT: Head, normocephalic and atraumatic. Eyes, pupils are equal, round, and reactive to light bilaterally. Extraocular movements intact bilaterally. NECK: Supple. Good range of motion. THROAT: No evidence of erythema or exudates in the posterior pharynx. Has poor dentition. PULMONARY: Clear to auscultation bilaterally. No wheezing, rales, or rhonchi. No crackles appreciated. CARDIOVASCULAR: Positive S1 and S2. No murmurs, rubs, or gallops. ABDOMEN: Soft, nondistended, and nontender to palpation. Bowel sounds present. MUSCULOSKELETAL: Strength is 5/5 throughout. No evidence of any muscle deficits on examination. No weakness appreciated. NEUROLOGIC: Cranial nerves 2 through 12 grossly intact. No evidence of any neurological deficits on exam. SKIN: Intact. Warm to touch. Good cap refill. PSYCHIATRIC: Normal affect and mood. EXTREMITIES: Right foot decreased pulses, it is tender to palpation on exam, it is still erythematic in nature. LABORATORY FINDINGS: Show white count 6.8, hemoglobin 9.4, hematocrit 36.8, platelets of 193. Coagulation PT 13, INR 0.96, PTT 28. Chemistry; sodium 141, potassium 4.4 chloride 109, bicarb 27, anion gap is 9.4, BUN 15, creatinine 0.91, glucose 93, calcium is 8.8. Urinalysis negative. MICROBIOLOGY: Blood cultures no growth. MRI of the foot shows abnormal soft tissue edema at distal 2nd toe without associated fluid collection or cortical destruction on bone. These findings are most likely due to cellulitis. IMPRESSION: 1. Right foot cellulitis. 2. Severe peripheral artery disease likely concerning of her right foot pain is due to ischemic issues. 3. Type 2 diabetes. 4. History of coronary artery disease with stents. 5. Hypertension. PLAN: At this time, continue with IV antibiotics on which ID is following. MRI of the foot with results above. I personally spoke with Cardiology about arterial Doppler findings. We are waiting for reading from the upholsterer outside. It seems that the patient has significant vessel disease. There is likely to be no option for revascularization. The patient does not have any true option for any kind of bypass as well. It seems per Cardiology the final recommendation is more amputation in nature. I also spoke with Podiatry and he seems to agree that amputation is only the true option for this patient. Initiation by amputation has been discussed with the patient today by Podiatry. I will also talked with the patient as well about possible amputation is a true option based on severe PAD. It is not felt by Podiatry that doing a small amputation like amputation of the toes or TMA will truly be beneficial instead he really recommends more of a BKA. We will follow again tomorrow. Continue with pain control very closely. Continue with same plan of care. Monitor closely. Follow with the rest of consultants on this case. Cardiology to talk with the patient later today about her options. MD DAMON Brito/MODL /[id number]
[2020-01-15] MEDS: HYDROCODONE/APAP 5MG-325MG TAB PO PRN (13:14)
--- NOTE | 2020-01-15 16:14 | NUR ---
DR. CUADRA ROUNDING ON PATIENT, EXPLAINED THAT HE COULDN'T FIX THE OCCLUSION. HE'S RECOMMENDING TO TALK TO THE SURGEON.
[2020-01-15] MEDS: CEFTRIAXONE SOD 1 GM/NS 50 ML 50 ML IV SCH (16:39)
[2020-01-15] MEDS: ENOXAPARIN SOD INJ 40 MG/0.4 ML SYR SC SCH (16:39)
--- NOTE | 2020-01-15 19:03 | Diagnostic Imaging Report ---
EXAM: CHEST XRAY LINE PLACEMENT DATE: 01/15/2020 6:30 PM INDICATION: ^PICC LINE PLACEMENT ^[id number] ^[id number] COMPARISON: Chest x-ray, 04/02/2018 FINDINGS: Lines and tubes: There is a right PICC extending to the upper SVC. Heart size normal. No focal pulmonary opacity, pleural effusion or pneumothorax. Upper abdomen unremarkable. Surgical clips are seen in the left cervical area. No acute bony abnormalities. IMPRESSION: 1. No evidence for acute disease in the chest. 2. Right PICC extending to the upper SVC. Signed by: Dr. Soy Spivey M.D. on 01/15/2020 7:00 PM
--- NOTE | 2020-01-15 19:20 | NUR ---
BEDSIDE SHIFT REPORT GIVEN TO ONCOMING NURSE, PATIENT IS IN STABLE CONDITION. NO ACUTE DISTRESS NOTED AT THIS TIME. CALL LIGHT WITHIN REACH. BED IN THE LOWEST POSITION.
[2020-01-15] MEDS: ACETAMINOPHEN 325 MG TAB PO PRN (22:58)
[2020-01-16] VITALS (8 sets, daily range): BP systolic 146–165; BP diastolic 67–78
[2020-01-16] MEDS: VANCOMYCIN 1GM/NS 250 ML 250 ML IV SCH ×2 (00:29→12:00)
[2020-01-16] MEDS: LEVOTHYROXINE SODIUM 50 MCG TAB PO SCH (05:42)
--- NOTE | 2020-01-16 06:54 | NUR ---
RECEIVED BEDSIDE SHIFT REPORT FROM OFF GOING NURSE. PATIENT IS RESTING IN BED, NO ACUTE DISTRESS NOTED. SON AT BEDSIDE. CALL LIGHT WITHIN REACH. BED IN THE LOWEST POSITION.
--- NOTE | 2020-01-16 07:15 | NUR ---
bedside shift report given to the oncoming nurse. pt in stable condition. Bed in lowest position and call light within reach.
[2020-01-16] MEDS: INSULIN REGULAR, HUMAN 100 UNIT/1 ML 3ML VIAL SQ SCH ×4 (07:30→21:00)
[2020-01-16] MEDS: LOSARTAN POTASSIUM 25 MG TAB PO SCH (08:37)
[2020-01-16] MEDS: GLIMEPIRIDE 2 MG TAB PO SCH (08:37)
[2020-01-16] MEDS: ASPIRIN 81 MG ENTERIC COATED PO SCH (08:37)
--- NOTE | 2020-01-16 10:12 | NUR ---
Dr. Mederos, after this patient's amputation, can therapy please have an order so we can work on safe transfers with [facility]? Thank you! Isabel Hammond, PT Addendum: 01/16/20 at 1014 by Isabel Hammond PT Amended: Links added.
[2020-01-16] MEDS: HYDROCODONE/APAP 5MG-325MG TAB PO PRN ×2 (10:40→12:17)
--- NOTE | 2020-01-16 11:31 | Progress Note ---
DATE: 01/16/2020 SUBJECTIVE: This is a 74-year-old female with past medical history of type 2 diabetes, peripheral neuropathy, and peripheral vascular disease, who is seen at bedside this morning and is resting comfortably. She relates to some pain to the right foot and relates to having pain overnight. Currently, denies nausea, vomiting, fever, chills, chest pain, or shortness of breath. No other acute issues overnight. PHYSICAL EXAMINATION: GENERAL: Alert and oriented x3, in no apparent distress. VITAL SIGNS: Today, temperature 98.4, heart rate 67, respiratory rate 18, blood pressure 165/67, and pulse ox is 96% on room air. PROBLEM FOCUSED LOWER EXTREMITY PHYSICAL EXAM: VASCULAR: Dorsalis pedis and posterior tibial pulses are nonpalpable. Capillary refill time is delayed to all digits of the right foot, specifically the hallux in the 2nd digit. The 2nd digit duskiness appears to be worse with blister formation present. There is zero capillary refill time to the right hallux. Approximately 5 to 6 seconds capillary refill time to the right 4th and 5th digits. Erythema is still present to approximately the level of the midfoot. No fluctuance is noted. No warmth. NEUROLOGICAL: Sensation is diminished to light touch bilateral. MUSCULOSKELETAL: Right 3rd digit amputation, left hallux valgus with dorsally contracted digits. DERMATOLOGICAL: Ulcerations noted to the plantar aspect of the 2nd and 3rd metatarsal head, which is deep and with more fibrotic tissue. Second digit has blister formation with worsening of cyanotic changes to the digit. Two superficial ulcerations are noted to the patient's left foot in the area of the 1st metatarsophalangeal joint and the left 3rd metatarsal. No local acute signs of infection are noted to the left lower extremity. LABORATORY DATA: White blood cell count is 6.8, hemoglobin 11.4, hematocrit 36.8, and platelet count is 193. Sedimentation rate is 22. Glucose is 127. ASSESSMENT: 1. Right 2nd toe ulceration, cellulitis. 2. Peripheral vascular disease. 3. Type 2 diabetes, peripheral neuropathy. 4. Left foot ulceration, stable. PLAN: The patient was seen and evaluated. Discussed condition and treatment options with the patient in detail. Continue IV antibiotics and local wound care to bilateral lower extremities. Cardiology consultation has been obtained and relates that no further intervention can be performed to the right lower extremity and the patient does have severe peripheral vascular disease. I had a lengthy discussion with the patient and the patient's son at the bedside today about treatment options moving forward. In light of the fact the patient previously had a 3rd amputation, there is dusky 1st and 2nd digit. I would recommend a transmetatarsal at this time. Also, I had a lengthy discussion with the patient about possibility of failure of the transmetatarsal amputation and further leading to fplvt-mfo-ydga amputation. The patient opts to choose a transmetatarsal amputation. She should be aware that the patient will likely need to be nonweightbearing for a prolonged period of time and would recommend transfer to a nursing facility or long-term acute care postoperatively for IV antibiotics and local wound care and possible hyperbaric oxygen. The patient appears resistant to any sort of amputation. The patient relates that it will be difficult for her to be nonweightbearing. Discussed with the patient that any type of premature weightbearing on a partial amputation of the right foot will lead to degradation of the wound and beudd-nin-vuxt amputation. The patient will discuss with family and determine what they would like to do moving forward. Alternatively, discussed with the patient IV antibiotics, local wound care, however, could lead to further gangrenous changes, infection, and sepsis. The patient appears to be understanding. KARO Gray/YURI /[id number]
--- NOTE | 2020-01-16 13:36 | Progress Note ---
DATE: SUBJECTIVE: Ms. Vasquez, who is currently lying in bed comfortably. I have discussed with Internal Medicine. She has no new complaints. LABORATORY DATA: Reviewed laboratory data on the patient. PHYSICAL EXAMINATION: GENERAL: She is alert and oriented. Does not seem to be in acute distress. EXTREMITIES: She does have ulcer on plantar aspect of the 2nd and 3rd metatarsal, deep with fibrotic tissue. The 2nd toe with a blister. Cyanosis. IMPRESSION: Severe ischemia, left foot ulcer, right 2nd toe ulcer, peripheral vascular disease. Discussed with her, she may end up with edsoj-wow-ynig amputation, but she is not willing for the time being. She would like to do a transmetatarsal amputation and the wound dehisced and she will consider her options. In the meantime, we will continue with the current choice of IV antibiotic of vancomycin and Rocephin. Recommended deep tissue cultures from surgery. Her main problem really is severe peripheral vascular disease. This was discussed with Internal Medicine. Discussed with the patient. She is very aware. She may end up with rxaxk-gau-uvsz amputation. MD ITZEL Sadler/YURI /[id number]
[2020-01-16] MEDS: CEFTRIAXONE SOD 1 GM/NS 50 ML 50 ML IV SCH (16:30)
[2020-01-16] MEDS: SODIUM CHLORIDE 0.9% 1000ML 1,000 ML IV SCH (17:55)
--- NOTE | 2020-01-16 19:22 | NUR ---
BEDSIDE SHIFT REPORT GIVEN TO ONCOMING NURSE. PATIENT IS RESTING IN BED. NO ACUTE DISTRESS NOTED. CALL LIGHT WITHIN REACH. BED IN THE LOWEST POSITION.
[2020-01-17] VITALS (9 sets, daily range): BP systolic 129–176; BP diastolic 58–90
[2020-01-17] MEDS: VANCOMYCIN 1GM/NS 250 ML 250 ML IV SCH (00:30)
[2020-01-17] MEDS: SODIUM CHLORIDE 0.9% 1000ML 1,000 ML IV SCH ×2 (00:30→17:27)
--- NOTE | 2020-01-17 01:03 | Progress Note ---
DATE: 01/16/2020 Medicine Progress Note SUBJECTIVE: The patient agreed to TMA of the right foot. The patient had extensive conversation with the oxyacetylene welder as well as the other [employer] consultant. Despite the consultants recommend a right BKA, she is only reluctant to do a right TMA, which is scheduled for Tuesday of this week. LABORATORY FINDINGS: Show white count 6.8, hemoglobin 11.5, hematocrit 36, platelets of 193. Chemistries reviewed, stable. IMAGING STUDIES: PICC line ordered. PHYSICAL EXAMINATION: VITAL SIGNS: Temperature is 98.7, pulse 83, respiratory rate 16, blood pressure 143/67, pulse ox 95% on room air. GENERAL: No acute distress, alert and oriented x3. Cooperative on examination. HEENT: Head, normocephalic and atraumatic. Eyes, pupils are equal, round, and reactive to light bilaterally. Extraocular movements intact bilaterally. Throat, no evidence of erythema or exudates in the posterior pharynx. Has poor dentition. NECK: Supple. Good range of motion. PULMONARY: Clear to auscultation bilaterally. No wheezing, rales, or rhonchi. No crackles appreciated. CARDIOVASCULAR: Positive S1 and S2. No murmurs, rubs, or gallops appreciated. ABDOMEN: Soft, nondistended, and nontender to palpation. Bowel sounds present. MUSCULOSKELETAL: Strength is 5/5 throughout. No evidence of any muscle deficits on examination. No weakness appreciated. NEUROLOGIC: Cranial nerves 2 through 12 grossly intact. No evidence of any neurological deficits on exam. SKIN: Intact. Warm to touch. Good cap refill. PSYCHIATRIC: Normal affect and mood. EXTREMITIES: No edema. Good range of motion throughout. Right foot ischemic limb with underlying erythema, cool to touch at the toes. IMPRESSION: 1. Right foot cellulitis. 2. Severe peripheral artery disease with ischemic right foot. 3. Type 2 diabetes. 4. History of coronary artery disease with stents. 5. Hypertension. PLAN: At this time, I had a long discussion with the son and the patient at bedside including all the consultants in which the patient finally agreed to a right TMA. Despite that, we have discussed with her that BKA is the best option for her, less likely the forefoot will heal any more than the way it is. Likely, will continue to get progressively worse due to severe PAD, but despite that the patient is still reluctant as she only wants a TMA at this time. She is scheduled for Tuesday of this week to have a right TMA. Otherwise, we will continue with same plan of care and monitor very closely with the rest of the consultants. MD DAMON Brito/YURI /[id number]
[2020-01-17] MEDS: LEVOTHYROXINE SODIUM 50 MCG TAB PO SCH (06:33)
[2020-01-17 06:56] LABS: BASOPHILS % 0.4 % (0.0-1.0); EOSINOPHILS # (AUTO) 0.3 (0.0-0.4); EOSINOPHILS % 2.8 % (0.0-6.0); HEMATOCRIT 34.7 % (34.2-44.1); LYMPHOCYTES # (AUTO) 1.9 (1.0-3.2); LYMPHOCYTES % 20.1 % (18.0-39.1); MEAN CORPUSCULAR HEMOGLOBIN 26.9 pg (28-32); MEAN CORPUSCULAR HGB CONC 31.7 g/dL (31-35); MEAN CORPUSCULAR VOLUME 84.8 fL (81-99); MONOCYTES # (AUTO) 0.7 (0.2-0.8); MONOCYTES % 7.6 % (4.4-11.3); NEUTROPHILS # (AUTO) 6.3 (2.1-6.9); NEUTROPHILS % 68.7 % (38.7-80.0); PLATELET COUNT 173 x10e3/uL (140-360); RED BLOOD COUNT 4.09 x10e6/uL (3.6-5.1)
--- NOTE | 2020-01-17 07:14 | NUR ---
bedside shift report received from date night caregiver RN. pt awake, alert, no complaints at this time. no signs of distress.
[2020-01-17 07:27] LABS: ANION GAP 9.5 mmol/L (8-16); BLOOD UREA NITROGEN 13 mg/dL (7-26); BUN/CREATININE RATIO 17 (6-25); CARBON DIOXIDE 29 mmol/L (22-29); CHLORIDE 103 mmol/L (98-107); CREATININE, SERUM 0.78 mg/dL (0.57-1.11); EST GLOMERULAR FILTRATION RATE > 60 ML/MIN (60-); GLUCOSE 72 mg/dL (74-118); POTASSIUM 3.5 mmol/L (3.5-5.1); SODIUM 138 mmol/L (136-145)
[2020-01-17] MEDS: INSULIN REGULAR, HUMAN 100 UNIT/1 ML 3ML VIAL SQ SCH ×4 (07:30→21:00)
[2020-01-17] MEDS: LOSARTAN POTASSIUM 25 MG TAB PO SCH (08:50)
[2020-01-17] MEDS: GLIMEPIRIDE 2 MG TAB PO SCH (08:50)
--- NOTE | 2020-01-17 10:45 | Progress Note ---
DATE: 01/17/2020 SUBJECTIVE: A 74-year-old female with past medical history of type 2 diabetes, peripheral neuropathy, and peripheral vascular disease seen at bedside this morning, resting comfortably. Continues to relate to pain to her right foot. Currently, denies nausea, vomiting, fever, chills, chest pain, or shortness of breath. No other acute issues overnight. OBJECTIVE: GENERAL: Alert and oriented x3, in no apparent distress. VITAL SIGNS: Today, temperature 98.7, heart rate 81, respiratory rate 20, blood pressure 164/72, and pulse ox 98% on room air. PROBLEM FOCUSED LOWER EXTREMITY PHYSICAL EXAM: VASCULAR: Dorsalis pedis and posterior tibial pulses are nonpalpable to the right lower extremity. Capillary refill time is delayed to all digits of the right hallux and second digit are dusky with gangrenous changes and delayed capillary refill time. Erythema still present to the midfoot likely ischemic vasculitis. No fluctuations or warmth is present. NEUROLOGICAL: Sensation is diminished to light touch bilateral. MUSCULOSKELETAL: Right third digit amputation, left hallux valgus with dorsally contracted digits. DERMATOLOGICAL: Gangrenous changes are noted to right hallux and right second digit with blister formation with multiple ulcerations. Plantar ulceration is noted to the second and third metatarsophalangeal joints. Two superficial ulcerations are noted to the left foot with hyperkeratotic borders with no local acute signs of infection. LABORATORY DATA: White blood cell count is 9.21, hemoglobin 11.0, hematocrit 34.7, and platelet count is 173. Sodium 138, potassium 3.5, chloride 103, CO2 29, BUN 13, creatinine 0.78, and glucose is 72. ASSESSMENT: 1. Right second digit gangrene cellulitis. 2. Peripheral vascular disease. 3. Type 2 diabetes, peripheral neuropathy. 4. Left foot ulceration, stable. PLAN: The patient was seen and evaluated. Discussed condition and treatment options with the patient in detail. Yesterday, I had a lengthy discussion with patient and the patient's family about amputation of the right lower extremity. Discussed with patient recommendation would be for a transmetatarsal amputation versus a vyzvw-xqp-etmq amputation. The patient is adamantly opposed to kfvmg-day-zxbt amputation. Discussed with the patient that we will proceed with a transmetatarsal amputation on Tuesday on 01/18/2020. Discussed with the patient the prognosis after this surgery is poor and there is a high likelihood of leading to rzbby-ydg-mhce amputation. The patient appears to be understanding. Surgical consent will be obtained for a right foot transmetatarsal amputation as well as a left foot wound debridement. The patient will be placed n.p.o. after midnight. Continue IV antibiotics per Infectious Disease. I had a lengthy discussion with the patient about postoperative care including long-term antibiotics, wound care, and nonweightbearing to the right lower extremity. Recommendation will be to transfer to a LTAC placement postoperatively for IV antibiotics, local wound care, and monitoring. The Podiatry Service will continue to monitor as an inpatient. KARO Gray/YURI /[id number]
[2020-01-17] MEDS: HYDROCODONE/APAP 5MG-325MG TAB PO PRN (13:06)
[2020-01-17] MEDS: VANCOMYCIN 300 ML IV SCH (13:10)
[2020-01-17] MEDS: CEFTRIAXONE SOD 1 GM/NS 50 ML 50 ML IV SCH (18:29)
[2020-01-17] MEDS: ACETAMINOPHEN 325 MG TAB PO PRN (18:31)
--- NOTE | 2020-01-18 00:59 | Progress Note ---
DATE: 01/17/2020 Medicine Progress Note SUBJECTIVE: The patient is doing well today. She is scheduled for right TMA tomorrow. Vital signs, she is afebrile, normotensive, respiratory rate is good. Labs, CBC stable. Chemistry reviewed, stable. OBJECTIVE: GENERAL: No acute distress, alert and oriented x3. Cooperative on examination. HEENT: Head, normocephalic and atraumatic. Eyes, pupils are equal, round, and reactive to light bilaterally. Extraocular movements intact bilaterally. Throat, no evidence of erythema or exudates in the posterior pharynx. Has poor dentition. NECK: Supple. Good range of motion. PULMONARY: Clear to auscultation bilaterally. No wheezing, rales, or rhonchi. No crackles appreciated. CARDIOVASCULAR: Positive S1 and S2. No murmurs, rubs, or gallops appreciated. ABDOMEN: Soft, nondistended, and nontender to palpation. Bowel sounds present. MUSCULOSKELETAL: Strength is 5/5 throughout. No evidence of any muscle deficits on examination. No weakness appreciated. NEUROLOGIC: Cranial nerves 2 through 12 grossly intact. No evidence of any neurological deficits on exam. SKIN: Intact. Warm to touch. Good cap refill. PSYCHIATRIC: Normal affect and mood. EXTREMITIES: No edema. Good range of motion throughout. IMPRESSION: 1. Right foot cellulitis. 2. Severe peripheral artery disease with ischemic right foot. 3. Type 2 diabetes. 4. History of coronary artery disease with stents. 5. Hypertension. PLAN: The patient is scheduled for right TMA tomorrow by Podiatry. Continue with IV antibiotics per ID. She has severe PAD and she finally agreed that she does need a TMA. She also understands that TMA may or may not work, but for now, she would like to go with the right TMA 1st to see what happens. We will try to schedule for usp facility as well. MD DAMON Brito/YURI /[id number]
[2020-01-18 04:10] VITALS: BP 187/84
[2020-01-18] MEDS: SODIUM CHLORIDE 0.9% 1000ML 1,000 ML IV SCH ×2 (05:10→16:30)
[2020-01-18] MEDS: LEVOTHYROXINE SODIUM 50 MCG TAB PO SCH (05:10)
[2020-01-18] MEDS ORDERED: DEXAMETHASONE SOD PHOS INJ 4 MG/ML VIAL ONE ×2 (06:15→14:16)
[2020-01-18] MEDS ORDERED: BUPIVACAINE HCL 0.5% INJ 30 ML VIAL INJ ONE (06:15)
[2020-01-18] MEDS ORDERED: BACITRACIN 50,000 UNIT VIAL ONE (06:15)
--- NOTE | 2020-01-18 07:05 | NUR ---
SHIFT CHANGE REPORT RECEIVED FROM FITNESS CENTRE MANAGER RN. PT ALREADY GONE TO OR. AWAITING ARRIVAL TO ROOM 291.
[2020-01-18] MEDS: INSULIN REGULAR, HUMAN 100 UNIT/1 ML 3ML VIAL SQ SCH ×4 (07:30→21:17)
[2020-01-18 08:04] VITALS: BP 187/84
--- NOTE | 2020-01-18 08:16 | NUR ---
RECEIVED REPORT FROM OR; PT HAD RIGHT TRANS METATARSAL AMPUTATION AND LEFT FOOT DEBRIDEMENT. BOTH FEET COVERED IN DRESSING WITH KERLIX. PT'S VITAL SIGNS FOLLOWS: BP 147/73, HR 83, 98% ON RA, RR 16. AWAITING PT'S ARRIVAL BACK TO THE ROOM.
[2020-01-18] MEDS: LOSARTAN POTASSIUM 25 MG TAB PO SCH (09:06)
[2020-01-18] MEDS: GLIMEPIRIDE 2 MG TAB PO SCH (09:06)
[2020-01-18] MEDS: VANCOMYCIN 300 ML IV SCH (09:11)
[2020-01-18] MEDS: ONDANSETRON HCL INJ 2MG/ML 2ML 2 MG/ML VIAL IV PRN (10:04)
--- NOTE | 2020-01-18 10:37 | NUR ---
PT SIGNED CHOICE FOR [facility], IF THEY ARE NOT ABLE TO AUTH THEN [facility]. WILL GET CLINICALS AND FAX TO FACILITY WITH [facility].
[2020-01-18] MEDS: HYDROMORPHONE 1MG/1ML INJ IV PRN (11:03)
[2020-01-18 11:23] VITALS: BP 161/77
--- NOTE | 2020-01-18 11:24 | NUR ---
pt refusing to have her blood sugar checked; pt also refusing diaper change by PCT. spoke with pt and was able to calm her. pt given pain medicine and changed her diaper.
[2020-01-18] MEDS ORDERED: PROPOFOL IV EMULSION 10 MG/ML 20 ML VIAL ONE (14:16)
[2020-01-18] MEDS ORDERED: ONDANSETRON HCL INJ 2MG/ML 2ML 2 MG/ML VIAL ONE (14:16)
[2020-01-18] MEDS ORDERED: LIDOCAINE HCL 2% LOCAL INJ 5 ML SDV VIAL INJ ONE (14:16)
[2020-01-18] MEDS ORDERED: ACETAMINOPHEN 1000 MG/100 ML IV ONE (14:16)
[2020-01-18] MEDS ORDERED: KETOROLAC TROMETHAMINE 30 MG/ML VIAL ONE (14:16)
[2020-01-18] MEDS ORDERED: SEVOFLURANE INHAL SOLN 250 ML PEN BTL ONE (14:16)
[2020-01-18] MEDS ORDERED: EPHEDRINE SULFATE INJ 50 MG/ML VIAL ONE (14:16)
--- NOTE | 2020-01-18 14:27 | Operative Report ---
DATE OF PROCEDURE: 01/18/2020 SURGEON: Corina Castañeda DPM PREOPERATIVE DIAGNOSES: 1. Right foot gangrene, osteomyelitis. 2. Left foot subcutaneous ulcerations. POSTOPERATIVE DIAGNOSES: 1. Right foot gangrene, osteomyelitis. 2. Left foot subcutaneous ulcerations. PLANNED PROCEDURES: 1. Right foot transmetatarsal amputation. 2. Left foot subcutaneous wound debridement. LEVEL VIAL CURVATURE GAUGER: None. ANESTHESIA: General with a postoperative block consisting of 20 mL of 0.5% Marcaine plain. HEMOSTASIS: Esmarch tourniquet applied to the right ankle for approximately 20-25 minutes. MATERIALS: 3-0 nylon. ESTIMATED BLOOD LOSS: Less than 10 mL. PATHOLOGY: Anaerobic and aerobic cultures distal forefoot sent for gross specimen. PROCEDURE NOTE: The patient was seen in the preoperative waiting room, where the correct procedure and site was identified. The patient was brought to the operating room and placed on the operating table in supine position. General anesthesia was initiated. At this time, the right foot, ankle, and leg was then scrubbed, prepped, and draped in the usual aseptic manner as well as the left foot ankle leg. Utilizing an Esmarch, tourniquet compression was applied to the right ankle for approximately 30 minutes. Attention was directed to the distal aspect of the patient's right foot, where previously 3rd digit amputation was noted. There is gangrenous changes to the level of the proximal interphalangeal joint of the 2nd digit and cyanotic, dusky discoloration with no capillary refill time to the right hallux. The decision was made to proceed with a transmetatarsal amputation to the right foot. Utilizing two large converging semielliptical incisions, the procedure was started. The incision was carried down directly to the level of bone. It should be noted that there was a moderate amount of serous fluid within the right foot and subcutaneous fat. However, very minimal bleeding was noted during the surgery. The incision was then carried to the level of the metatarsophalangeal joints well utilizing a towel clamp and a #15 blade. The digits were all disarticulated and passed off to the back table. Next, the dissection was carried proximally to allow for good visualization to about the midshaft of the metatarsal. Utilizing a sagittal saw, 5 osteotomies performed metatarsals 1 through 5 with the 1st metatarsal angled slightly medial and the 5th metatarsal ankle slightly lateral all were angled dorsal distal to plantar proximal. The distal aspect of the metatarsal shaft and head were resected and passed off to the back table. The shafts were remodeled utilizing a rongeur and a bone rasp. Next, the wound was prepped for closure by debriding all necrotic tissue, debulking fat and removing all dog-ears. Again, it should be noted very minimal bleeding was noted throughout this process. All tendons were grasped, pulled distally, cut and allowed to retract pass proximally into the foot. Wound cultures were taken at this point. The wound was then copiously irrigated with sterile saline and bacitracin with pulse lavage. Next, the incision site was reapproximated utilizing simple interrupted sutures with 3-0 nylon. The incision site was then dressed with Betadine-soaked Adaptic, 4x4s, Kerlix, Maldonado wrap, and a postop shoe. Next, attention was directed to the left foot, where two subcutaneous ulcerations were noted, one to the plantar aspect of the 1st metatarsal head, one to the plantar aspect of the 3rd metatarsal head. Utilizing a #10 blade it was debrided of all hyperkeratotic and necrotic tissue. Utilizing a curette, the wound was debrided to allow for bleeding healthy granulation tissue. Next, the incision site was dressed with Betadine-soaked Adaptic, 4x4s, Kerlix, and an Maldonado wrap. The patient tolerated the procedure and anesthesia well. The patient was then seen in the post operating waiting room. The patient was then transferred to the postoperative recovery with vital signs stable and vascular status intact. The patient was then being readmitted to the floor for postoperative monitoring, pain control and IV antibiotics. Due to history of severe peripheral vascular disease and minimal bleeding during the surgery, poor prognosis is noted and the patient will likely require further amputation in the future. KARO Gray/YURI /[id number]
--- NOTE | 2020-01-18 15:17 | NUR ---
[facility] UNABLE TO TAKE PT, [employer] STATES UNABLE TO GET APPROVAL FOR THIS POLICY, FAXED TO [facility] PER SECOND CHOICE ON CHOICE FORM.
[2020-01-18 15:28] VITALS: BP 180/83
--- NOTE | 2020-01-18 15:35 | NUR ---
FIXED PAS AND FAXED TO [facility] [address], [place], [address] ,
--- NOTE | 2020-01-18 16:14 | NUR ---
REP STATES IF ABLE TO GET TODAY WILL CALL N[facility]SES ST[facility], IF NOT APPROVED TODAY IT WILL BE TUESDAY.
--- NOTE | 2020-01-18 16:16 | NUR ---
EDUCATED ABOUT IMM, SIGNED, FILED IN CHART, WITH COPY LEFT WITH FAMILY AT BEDSIDE.
[2020-01-18] MEDS: CEFTRIAXONE SOD 1 GM/NS 50 ML 50 ML IV SCH (17:45)
[2020-01-18] MEDS: ENOXAPARIN SOD INJ 40 MG/0.4 ML SYR SC SCH (17:45)
[2020-01-18] MEDS: HYDRALAZINE HCL 20 MG/ML VIAL IV PRN (17:58)
[2020-01-18] MEDS ORDERED: FENTANYL CITRATE/PF 100MCG/2 ML INJ ONE (18:53)
[2020-01-18] MEDS: HYDROCODONE/APAP 5MG-325MG TAB PO PRN (19:24)
[2020-01-18 19:40] VITALS: BP 125/59
[2020-01-18 20:20] VITALS: BP 125/59
--- NOTE | 2020-01-19 00:04 | Progress Note ---
DATE: 01/18/2020 Medicine Progress Note SUBJECTIVE: The patient doing well today. She underwent a right TMA. Her pain is still present and which I changed her medications to IV Dilaudid and put her on a cardiac telemetry. LABORATORY FINDINGS: Show white count 9.2, hemoglobin 11, hematocrit is 34.7, platelets of 173. Chemistry reviewed, stable. PHYSICAL EXAMINATION: VITAL SIGNS: Temperature is 96.6, pulse 71, respiratory rate is 18, blood pressure 120/59, pulse ox 96% on room air. GENERAL: No acute distress, alert and oriented x3. Cooperative on examination. HEENT: Head, normocephalic and atraumatic. Eyes, pupils are equal, round, and reactive to light bilaterally. Extraocular movements intact bilaterally. Throat, no evidence of erythema or exudates in the posterior pharynx. Has poor dentition. NECK: Supple. Good range of motion. PULMONARY: Clear to auscultation bilaterally. No wheezing, rales, or rhonchi. No crackles appreciated. CARDIOVASCULAR: Positive S1 and S2. No murmurs, rubs, or gallops appreciated. ABDOMEN: Soft, nondistended, and nontender to palpation. Bowel sounds present. MUSCULOSKELETAL: Strength is 5/5 throughout. No evidence of any muscle deficits on examination. No weakness appreciated. NEUROLOGIC: Cranial nerves 2 through 12 grossly intact. No evidence of any neurological deficits on exam. SKIN: Intact. Warm to touch. Good cap refill. PSYCHIATRIC: Normal affect and mood. EXTREMITIES: No edema. Good range of motion throughout. Right foot, status post TMA 01/18/2020. IMPRESSION: 1. Status post right TMA performed on 11/17/2020. 2. Right foot cellulitis. 3. Severe peripheral arterial disease with ischemic right foot, status post TMA. 4. Type 2 diabetes. 5. History of coronary artery disease with stents. 6. Hypertension. PLAN: At this time, the patient is doing much better today. She underwent status post right TMA performed this morning by Podiatry. Pain control has been changed to IV Dilaudid, which has seemed to have helped tremendously. The patient is now on cardiac telemetry to be monitored very closely. I discussed the plan of care with the nursing staff. I also discussed this with Case Management that the patient will likely need custodial facility long-term to avoid any ambulation to the right foot. The patient understands that if her foot gets worse, she understood from the get go that this is no guarantee that her foot will get better as we have all recommended all consultants for a right BKA, but the patient refused. We will continue to monitor very closely. MD DAMON Brito/YURI /[id number]
[2020-01-19 00:30] VITALS: BP 106/59
[2020-01-19] MEDS: SODIUM CHLORIDE 0.9% 1000ML 1,000 ML IV SCH ×2 (00:51→05:50)
[2020-01-19] MEDS: HYDROMORPHONE 1MG/1ML INJ IV PRN (02:02)
[2020-01-19] MEDS: ONDANSETRON HCL INJ 2MG/ML 2ML 2 MG/ML VIAL IV PRN (02:02)
[2020-01-19 03:50] VITALS: BP 142/65
[2020-01-19] MEDS: LEVOTHYROXINE SODIUM 50 MCG TAB PO SCH (04:32)
[2020-01-19] MEDS: HYDROCODONE/APAP 5MG-325MG TAB PO PRN (04:33)
[2020-01-19 07:19] LABS: BASOPHILS % 0.2 % (0.0-1.0); EOSINOPHILS % 0.2 % (0.0-6.0); HEMOGLOBIN 10.5 g/dL (12.0-16.0); LYMPHOCYTES # (AUTO) 1.8 (1.0-3.2); LYMPHOCYTES % 17.8 % (18.0-39.1); MEAN CORPUSCULAR HEMOGLOBIN 27.1 pg (28-32); MEAN CORPUSCULAR HGB CONC 30.9 g/dL (31-35); MEAN CORPUSCULAR VOLUME 87.6 fL (81-99); MONOCYTES # (AUTO) 0.7 (0.2-0.8); MONOCYTES % 6.5 % (4.4-11.3); NEUTROPHILS # (AUTO) 7.7 (2.1-6.9); NEUTROPHILS % 74.9 % (38.7-80.0); PLATELET COUNT 224 x10e3/uL (140-360); RED BLOOD COUNT 3.88 x10e6/uL (3.6-5.1)
[2020-01-19] MEDS: INSULIN REGULAR, HUMAN 100 UNIT/1 ML 3ML VIAL SQ SCH ×4 (07:30→21:00)
--- NOTE | 2020-01-19 07:35 | NUR ---
informed by PCT that patient is refusing vital signs and blood sugar check at this time, patient states "did you read the board im sleeping". per PCT, will reattempt
[2020-01-19 07:46] LABS: ANION GAP 11.6 mmol/L (8-16); BLOOD UREA NITROGEN 18 mg/dL (7-26); BUN/CREATININE RATIO 20 (6-25); CALCIUM 8.1 mg/dL (8.4-10.2); CARBON DIOXIDE 23 mmol/L (22-29); CHLORIDE 106 mmol/L (98-107); CREATININE, SERUM 0.88 mg/dL (0.57-1.11); EST GLOMERULAR FILTRATION RATE > 60 ML/MIN (60-); GLUCOSE 64 mg/dL (74-118); POTASSIUM 3.6 mmol/L (3.5-5.1); SODIUM 137 mmol/L (136-145)
[2020-01-19] MEDS: GLIMEPIRIDE 2 MG TAB PO SCH (08:00)
[2020-01-19 08:37] VITALS: BP 136/63
--- NOTE | 2020-01-19 09:36 | Progress Note ---
DATE: 01/19/2020 SUBJECTIVE: This is a 74-year-old female with past medical history of type 2 diabetes, peripheral neuropathy, peripheral vascular disease, and gangrene, who is postoperative day #1 right transmetatarsal amputation and left foot wound debridement. The patient is seen resting at bedside this morning. She relates that her pain is well controlled. Currently denies nausea, vomiting, fever, chills, chest pain, or shortness of breath. PHYSICAL EXAMINATION: GENERAL: Alert and oriented x3, in no apparent distress. VITAL SIGNS: Today; temperature 96.4, heart rate 73, respiratory rate 17, blood pressure 136/63, and pulse ox 95% on room air. PROBLEM FOCUSED LOWER EXTREMITY PHYSICAL EXAM: VASCULAR: Dorsalis pedis and posterior tibial pulses are nonpalpable to the right lower extremity. Capillary refill time is delayed to the distal stump site. Negative edema or drainage. Minimal erythema is present. NEUROLOGICAL: Sensation is diminished to light touch bilateral. MUSCULOSKELETAL: Right transmetatarsal amputation. Left hallux valgus and dorsally contracted digits. DERMATOLOGICAL: Incision site is noted to the patient's right stump site. Sutures are in place and intact. No evidence of wound dehiscence. No local acute signs of infection. LABORATORY DATA: White blood cell count is 10.2, hemoglobin 10.5, hematocrit 34.0, and platelet count is 224. Sodium 137, potassium 3.6, chloride 106, CO2 of 23, BUN 18, creatinine 0.8. Glucose is 59, 247 overnight. ASSESSMENT: 1. Right foot gangrene, osteomyelitis, postoperative day #1 right transmetatarsal amputation. 2. Peripheral vascular disease. 3. Type 2 diabetes with peripheral neuropathy. 4. Left foot ulcerations, chronic, stable. PLAN: The patient was seen and evaluated, discussed condition and treatment options with patient in detail. The right foot dressing was changed in a Betadine wet-to-dry fashion. No local acute signs of infection are noted. Continue IV antibiotics and pain control. Again, I discussed with the patient, will likely need long-term wound care and if amputation fails we will recommend a ddghp-dup-jhdz amputation. At this time, discussed with patient and Case Management about LTAC or SNF referral for the immediate postoperative care for IV antibiotics. Local wound care and assistance with ambulatory status. The patient is agreeable to this. The Podiatry Service will continue to monitor as an inpatient. KARO Gray /[id number]
[2020-01-19] MEDS: LOSARTAN POTASSIUM 25 MG TAB PO SCH (10:01)
[2020-01-19] MEDS: ASPIRIN 81 MG ENTERIC COATED PO SCH (10:01)
[2020-01-19] MEDS: VANCOMYCIN 300 ML IV SCH (10:01)
[2020-01-19 10:15] VITALS: BP 136/63
[2020-01-19 12:16] VITALS: BP 118/58
[2020-01-19 15:30] VITALS: BP 127/60
[2020-01-19] MEDS: ENOXAPARIN SOD INJ 40 MG/0.4 ML SYR SC SCH (16:07)
[2020-01-19] MEDS: CEFTRIAXONE SOD 1 GM/NS 50 ML 50 ML IV SCH (16:07)
--- NOTE | 2020-01-19 18:07 | NUR ---
Nutrition Screen Note RD Recommendation for Physician: - Continue diet as ordered Plan of Care: RD following, monitoring for tolerance and adequacy Nutrition reason for involvement: LOS Primary Diagnose(s): 1. Right foot gangrene, osteomyelitis, postoperative day #1 right transmetatarsal amputation. 2. Peripheral vascular disease. 3. Type 2 diabetes with peripheral neuropathy. 4. Left foot ulcerations, chronic, stable. PMH: type 2 diabetes, peripheral neuropathy, peripheral vascular disease, and gangrene Ht: 64in Wt: 190lb BMI: 32.6kg/m2 IBW: 120lb +/- 10% RD Assessment: (01/19) Chart reviewed. Labs and meds reviewed. 74yo F, who was admitted for R foot cellulitis. Postoperative day #1 right transmetatarsal amputation. Visited pt in the room. Pt reported fair appetite with 50% recorded PO intake. Pt denied any nausea or vomiting. Pt denied any chewing or swallowing difficulty. Weight has been stable within the last year. No other complains at this time. Plan to d/c to rehab tomorrow. Current Diet: ADA 1800 Malnutrition Evaluation (01/19/2020) The patient does not meet criteria for a specified degree of malnutrition at this time. Will re-evaluate at follow-up as appropriate. Diet Education Needs Assessment: Diet education indicated, pt was not interested. Nutrition Care Level: low Signed: Becky Rutherford, , RD, LD
--- NOTE | 2020-01-19 18:42 | Progress Note ---
DATE: 01/19/2020 Medicine Progress Note SUBJECTIVE: The patient reports her pain is well controlled. She is actually denies use of much pain medication today. LABORATORY FINDINGS: Show white count 10.2, hemoglobin 10.5, hematocrit 34, platelets of 224. Chemistry, sodium 137, potassium 3.6, chloride 106, bicarb 23, anion gap of 11, BUN is 18, creatinine 0.88, glucose is 64. Repeat point of care is 112. MICROBIOLOGY: Noted. OBJECTIVE: VITAL SIGNS: Temperature is 98.2, pulse 67, respiratory rate is 18, blood pressure is 127/60, pulse ox is 96% on room air. GENERAL: No acute distress, alert and oriented x3. Cooperative on examination. HEENT: Head, normocephalic and atraumatic. Eyes, pupils are equal, round, and reactive to light bilaterally. Extraocular movements intact bilaterally. Throat, no evidence of erythema or exudates in the posterior pharynx. Has poor dentition. NECK: Supple. Good range of motion. PULMONARY: Clear to auscultation bilaterally. No wheezing, rales, or rhonchi. No crackles appreciated. CARDIOVASCULAR: Positive S1 and S2. No murmurs, rubs, or gallops appreciated. ABDOMEN: Soft, nondistended, and nontender to palpation. Bowel sounds present. MUSCULOSKELETAL: Strength is 5/5 throughout. No evidence of any muscle deficits on examination. No weakness appreciated. NEUROLOGIC: Cranial nerves 2 through 12 grossly intact. No evidence of any neurological deficits on exam. SKIN: Intact. Warm to touch. Good cap refill. PSYCHIATRIC: Normal affect and mood. EXTREMITIES: No edema. Good range of motion throughout. IMPRESSION: 1. Status post right TMA, performed on 11/17/2020. 2. Right foot cellulitis. 3. Severe peripheral artery disease with ischemic right foot, status post TMA. 4. Type 2 diabetes. 5. History of coronary artery disease with stents. 6. Hypertension. PLAN: At this time, continue with postop care. She is on IV pain control, which she is using very little now. Monitor her pain control. Plan is to go to intermediate facility. Antibiotics as per ID. Local dressing changes per Podiatry recommendations. MD DAMON Brito/YURI Harris: 01/19/2020 18:22:10 /[id number]
--- NOTE | 2020-01-19 19:11 | NUR ---
Transitional report given to on coming RN, rounds completed, patient stable and call light within reach
--- NOTE | 2020-01-19 19:13 | NUR ---
Received change of shift report from AM nurse. Walking rounds completed.
--- NOTE | 2020-01-19 21:31 | NUR ---
Patient refused BP and BS. Will inform MD. Will continue monitor.
[2020-01-20] VITALS (8 sets, daily range): BP systolic 118–181; BP diastolic 58–78
--- NOTE | 2020-01-20 | NUR ---
Patient c/o pain but refused to get BP checked prior to meds. Informed patient that meds could not be given with out checking her BP first. Patient agree to get vitals checked. BP with in normal limits. Patient received pain and nausea meds. Continue monitor.
[2020-01-20] MEDS: HYDROMORPHONE 1MG/1ML INJ IV PRN (01:15)
[2020-01-20] MEDS: ONDANSETRON HCL INJ 2MG/ML 2ML 2 MG/ML VIAL IV PRN (01:16)
--- NOTE | 2020-01-20 05:18 | NUR ---
Patient resting quitly at this time. Continue monitor.
[2020-01-20] MEDS: LEVOTHYROXINE SODIUM 50 MCG TAB PO SCH (06:00)
[2020-01-20] MEDS: INSULIN REGULAR, HUMAN 100 UNIT/1 ML 3ML VIAL SQ SCH ×4 (07:30→21:00)
--- NOTE | 2020-01-20 07:30 | NUR ---
PATIENT OUT OF BED TO CHAIR WATCHING TV, NO DISTRESS OTED. DRESSING DRY AND INTACT TO RIGHT FOOT. CALL LIGHT AT EASY REACH.
[2020-01-20] MEDS: GLIMEPIRIDE 2 MG TAB PO SCH (08:00)
[2020-01-20] MEDS ORDERED: BISACODYL 10 MG SUPP PR PRN (08:45)
[2020-01-20] MEDS: LOSARTAN POTASSIUM 25 MG TAB PO SCH (09:06)
[2020-01-20] MEDS: ASPIRIN 81 MG ENTERIC COATED PO SCH (09:06)
[2020-01-20] MEDS: VANCOMYCIN 300 ML IV SCH (11:00)
--- NOTE | 2020-01-20 11:14 | Progress Note ---
DATE: 01/20/2020 SUBJECTIVE: A 74-year-old female with past medical history of type 2 diabetes, peripheral neuropathy, peripheral vascular disease, and gangrene, who is postoperative day #2 right transmetatarsal amputation, left foot. The patient is seen resting at bedside this morning. She relates to be in some discomfort from constipation and relates was recently given a laxative. She relates to intermittent throbbing to her right foot, which is alleviated by holding the foot in a dependent position. Currently denies nausea, vomiting, fever, chills, chest pain, or shortness of breath. PHYSICAL EXAMINATION: GENERAL: Alert and oriented x3, in no apparent distress. VITAL SIGNS: Today, temperature 98.8, heart rate 89, respiratory rate 18, blood pressure 146/68, and pulse ox 94% on room air. Problem focused lower extremity physical exam: VASCULAR: Dorsalis pedis and posterior tibial pulses are nonpalpable. Capillary refill time is delayed to the distal stump site. Negative edema or drainage. Erythema is present, however, improving. NEUROLOGICAL: Sensation is diminished to light touch bilateral. MUSCULOSKELETAL: Right transmetatarsal amputation, left hallux valgus and dorsally contracted digits. DERMATOLOGICAL: Incision site noted to the patient's right stump site. Sutures are in place and intact. No evidence of wound dehiscence. No local acute signs of infection. Superficial ulceration is noted to the plantar aspect of the left 2nd and 3rd metatarsophalangeal joints. Hyperkeratotic lesion was previously debrided and is 100% granular, approximately 0.5 cm x 0.5 cm with no local acute signs of infection. LABORATORY DATA: No new labs today. ASSESSMENT: 1. Right foot gangrene, osteomyelitis, postoperative day #2, right transmetatarsal amputation. 2. Peripheral vascular disease. 3. Type 2 diabetes with peripheral neuropathy. 4. Left foot ulceration, stable. PLAN: The patient was seen and evaluated. Discussed condition and treatment options with the patient in detail. The right foot dressing was changed with Betadine wet-to-dry. No local acute signs of infection are noted. The left foot dressing change was performed with Xeroform, 4x4s, Kerlix, and tape. No local acute signs of infection were noted. Continue IV antibiotics and pain control per Infectious Disease. I again addressed with the patient long-term wound care, IV antibiotics, and would recommend fdc facility or long-term acute care for immediate postoperative care. The patient is understanding of the fact that if the transmetatarsal amputation fails, the next step would be a abnog-ulz-qvno amputation. Continue 100% nonweightbearing to the right lower extremity. Podiatry Service will continue to follow. KARO Gray/YURI /[id number]
--- NOTE | 2020-01-20 12:35 | NUR ---
PATIENT ASSISTED BACK TO BED. DRESSING INTACT TO RIGHT FOOT.
[2020-01-20] MEDS ORDERED: PEG (High)/E-LYTE SOLN 4,000 ML BTL PO ONE (13:45)
[2020-01-20] MEDS ORDERED: MINERAL OIL 132 ML BTL PR ONE (14:30)
[2020-01-20] MEDS ORDERED: METOPROLOL TARTRATE 25 MG TAB PO ONE (14:45)
[2020-01-20] MEDS ORDERED: AMIODARONE HCL 200 MG TAB PO ONE (14:45)
--- NOTE | 2020-01-20 14:52 | NUR ---
CALL RECEIVED FROM TELEMETRY DEPARTMENT STATING THAT THE PATIENT HAS AFIB WITH RVR. UPON ASSESSMENT V/S 97.6- 153- 20- 172/83 AND 95% ON RA. INSULATION PACKER NOTIFIED, IN THE ROOM TO SEE PATIENT. NEW ORDERS RECEIVED AND IMPLEMENTED. WILL CLOSELY MONITOR.
[2020-01-20] MEDS ORDERED: ENOXAPARIN SOD INJ 40 MG/0.4 ML SYR SC SCH (15:00)
[2020-01-20 16:22] LABS: FREE THYROXINE INDEX 2.6975 (1.4-3.8); THYROID STIMULATING HORMONE 2.854 uIU/mL (0.350-4.940)
[2020-01-20] MEDS: CEFTRIAXONE SOD 1 GM/NS 50 ML 50 ML IV SCH (17:02)
--- NOTE | 2020-01-20 17:11 | Progress Note ---
DATE: SUBJECTIVE: Ms. Vasquez is complaining of constipation. She is also complaining that she is waking up in the middle of the night for doing the Accu-Chek. She otherwise has no other complaints. Her foot is otherwise stable. The patient who is 74 with diabetes mellitus type 2, neuropathy, peripheral vascular disease and gangrene. Postop day number 2, transmetatarsal amputation of left foot. Peripheral vascular disease with constipation. LABORATORY DATA: White count of 10, hemoglobin 10.5. Sodium 137, potassium 3.8, and glucose of 64. MEDICATIONS: She is currently on Dulcolax, Zofran, Rocephin. PHYSICAL EXAMINATION: GENERAL: She is currently alert, oriented, does not seem in acute distress. VITAL SIGNS: Stable, currently afebrile. HEENT: Not icteric. NECK: Supple. CHEST: Clear. IMPRESSION: 1. Status post transmetatarsal amputation, can switch to oral doxycycline. 2. Constipation. 3. Diabetes. 4. Neuropathy. We will follow. MD ITZEL Sadler/DARIUSL /[id number]
--- NOTE | 2020-01-20 18:08 | NUR ---
PATIENT NOTED WITH BLOOD SUGAR OF 55. NO S/S OF HYPOGLYCEMIA NOTED. ORANGE JUICE AND CRACKERS GIVEN AND WELL TOLERATED. BLOOD SUGAR RECHECKED WITH THE READING OF 129. WILL CONTINUE TO MONITOR.
--- NOTE | 2020-01-20 20:20 | NUR ---
RECEIVED PT SITTING AT THE SIDE OF THE BED .DENIES PAIN RT FOOT TMA WITH DRESSING .LEFT FOOT DEBRIDEMENT .TELE #3 AFIB .CALL LIGHT WITH IN REACH CONTINUE TO MONITOR
[2020-01-20] MEDS: AMIODARONE HCL 200 MG TAB PO SCH (21:52)
--- NOTE | 2020-01-20 22:02 | Progress Note ---
DATE: 01/20/2020 Medicine Progress Note SUBJECTIVE: The patient is doing well today. She was constipated, given some stools and are much improved. She was found to be hypoglycemic, was given some juice this afternoon. Blood was discontinued. Apparently, the patient was not eating very well at this time. OBJECTIVE: VITAL SIGNS: Temperature is 98.1, pulse is reported at 124, respiratory rate is 20, blood pressure was recorded at 172/83, pulse ox 95% on room air. LABORATORY DATA: Labs show white count 10.2, hemoglobin 10.5, hematocrit 34 and platelets of 224. MICROBIOLOGY: Blood cultures, no growth. Wound cultures show no growth. OBJECTIVE: GENERAL: In no acute distress. Alert and oriented x3. Cooperative on examination. HEENT: Head; normocephalic, atraumatic. Eyes; pupils are equal, round, and reactive to light bilaterally. Extraocular movements are intact bilaterally. Throat; no evidence of erythema or exudates in the posterior pharynx. Has poor dentition. NECK: Supple. Good range of motion. PULMONARY: Clear to auscultation bilaterally. No wheezing, rales, or rhonchi. No crackles appreciated. CARDIOVASCULAR: Positive S1, S2. No murmurs, rubs, or gallops. ABDOMEN: Soft, nondistended, nontender to palpation. Bowel sounds present. MUSCULOSKELETAL: Strength is 5/5 throughout. No evidence of any muscle deficits on examination. No weakness appreciated. NEUROLOGIC: Cranial nerve 2 through 12 grossly intact. No evidence of any neurological deficits on exam. SKIN: Intact. Warm to touch. Good cap refill. PSYCHIATRIC: Normal affect and mood. EXTREMITIES: Right foot TMA. ASSESSMENT: 1. Status post right TMA performed on 01/18/2020. 2. Right foot cellulitis. 3. Severe PAD with skin status post TMA. 4. Type 2 diabetes. 5. History of coronary artery disease with stents. 6. Hypertension. PLAN: At this time, we will continue with postop care, pain control. She was given stool softeners for underlying constipation with much improvement. Continue with IV antibiotics. All cultures were negative. Pending prison facility placement. Podiatry, ID, RN and Cardiology are all following. MD DAMON Brito/YURI /[id number]
[2020-01-21] VITALS (7 sets, daily range): BP systolic 105–153; BP diastolic 55–76
[2020-01-21] MEDS: ONDANSETRON HCL INJ 2MG/ML 2ML 2 MG/ML VIAL IV PRN (00:47)
[2020-01-21] MEDS: HYDROMORPHONE 1MG/1ML INJ IV PRN ×2 (00:47→20:00)
[2020-01-21] MEDS: AMIODARONE HCL 200 MG TAB PO SCH ×3 (06:00→22:00)
[2020-01-21] MEDS: LEVOTHYROXINE SODIUM 50 MCG TAB PO SCH (06:00)
--- NOTE | 2020-01-21 06:26 | NUR ---
C/O PAIN AND GIVEN ORDERED PAIN MEDICATION.PT HAD BM DURING THE SHIFT .CALL LIGHT WITH IN REACH .CONTINUE TO MONITOR
--- NOTE | 2020-01-21 06:57 | NUR ---
BEDSIDE REPORT GIVEN TO THE ONCOMING NURSE
--- NOTE | 2020-01-21 07:18 | NUR ---
PATIENT IN BED RESTING WITH EYES CLOSED, NO DISTRESS NOTED. DRESSING INTACT TO RIGHT FOOT. CALL LIGHT AT REACH.
[2020-01-21] MEDS: INSULIN REGULAR, HUMAN 100 UNIT/1 ML 3ML VIAL SQ SCH ×4 (07:30→20:33)
[2020-01-21] MEDS: LOSARTAN POTASSIUM 25 MG TAB PO SCH (09:00)
[2020-01-21] MEDS: DOCUSATE SODIUM 100 MG CAP PO SCH ×2 (09:06→17:33)
[2020-01-21] MEDS: ASPIRIN 81 MG ENTERIC COATED PO SCH (09:06)
--- NOTE | 2020-01-21 09:57 | NUR ---
FAXED UPDATES FROM WEEKEND TO FACILITY, CALLED AND STATES STILL PENDING.
[2020-01-21] MEDS: VANCOMYCIN 300 ML IV SCH (10:03)
--- NOTE | 2020-01-21 11:20 | NUR ---
PATIENT ASSISTED WITH DIAPER CHANGE. REPOSITIONED IN BED, CALL LIGHT AT REACH.
--- NOTE | 2020-01-21 15:25 | NUR ---
DRESSING CHANGED TO RIGHT FOOT BY . IN BED WITH CALL LIGHT AT REACH.
--- NOTE | 2020-01-21 15:25 | Progress Note ---
DATE: 01/21/2020 SUBJECTIVE: This is a 74-year-old female, past medical history of type 2 diabetes, peripheral neuropathy, peripheral vascular disease and gangrene, is postoperative day #3 right transmetatarsal amputation. The patient is seen resting at bedside this morning. She relates to be improved from her constipation from yesterday. She relates to improvement in the right foot pain. Currently, denies nausea, vomiting, fever, chills, chest pain, or shortness of breath. PHYSICAL EXAMINATION: GENERAL: Alert and oriented x3, in no apparent distress. VITAL SIGNS: Today, temperature is 96.0, heart rate 72, respiratory rate 18, blood pressure 118/55, and pulse ox 98% on room air. Problem focused lower extremity physical exam: VASCULAR: Dorsalis pedis and posterior tibial pulses are not palpable. Capillary refill time is delayed to the distal stump site. Negative edema or drainage. Erythema is improving. NEUROLOGICAL: Sensation is absent to light touch bilateral. MUSCULOSKELETAL: Right transmetatarsal amputation, the left hallux valgus and dorsally contracted digits. DERMATOLOGICAL: Incision site is noted to the patient's right stump site. Sutures were in place and intact. No evidence of wound dehiscence. No local acute signs of infection. Superficial ulcerations are noted to the plantar aspect of the 2nd metatarsophalangeal joint. The lesions are less hyperkeratotic and approximately 0.5 cm by 0.5 cm with no local acute signs of infection. LABORATORY DATA: No new labs today. MICROBIOLOGY: No growth up to 3 days from intraoperative wound cultures. ASSESSMENT: 1. Right foot gangrene, osteomyelitis, postoperative day #3, right transmetatarsal amputation. 2. Peripheral vascular disease. 3. Type 2 diabetes with peripheral neuropathy. 4. Left foot ulceration, which is stable. PLAN: The patient was seen and evaluated. Discussed condition and treatment options with the patient in detail. The right foot dressing was changed today with Betadine wet-to-dry. No local acute signs of infection are noted. The left foot dressing was left intact. Continue IV antibiotics per Infectious Disease and pain control per the primary team. Again, I would recommend local wound care and antibiotics at the fdc facility and postoperative monitoring for ambulatory status. Again, the patient is understanding if this procedure fails, the recommendation will be a uwsgl-vqz-lmte amputation. Recommend Betadine wet-to-dry dressing changes daily to the patient's right foot and Xeroform dressing changes to the patient's left foot. The patient is stable to be discharged to a fdc facility once stable per the primary team. KARO Gray/DARIUSL /[id number]
--- NOTE | 2020-01-21 16:22 | NUR ---
SPOKE W DR. INTERIANO REGARDING PT'S DISPOSITION. STATES THE PT HAD NEW ONSET AFIB AND WILL NOT DC TODAY. STATES SHE WILL NEED TO BE CLEARED BY CARDIOLOGY FIRST. SW PRESENT DURING CALL.
[2020-01-21] MEDS: CEFTRIAXONE SOD 1 GM/NS 50 ML 50 ML IV SCH (17:33)
--- NOTE | 2020-01-21 19:10 | NUR ---
Received change of shift report from AM nurse. Walking rounds completed.
--- NOTE | 2020-01-21 23:33 | Progress Note ---
DATE: 01/21/2020 Medicine Progress Note SUBJECTIVE: The patient reports her pain is well controlled. We are still waiting on a senior living facility. I did discuss with ID once 3 weeks of oral doxycycline, no overnight events. LABORATORY DATA: Labs, CBC stable. Chemistry stable. PHYSICAL EXAMINATION: VITAL SIGNS: Temperature is 97.2, pulse 70, respiratory rate is 18, blood pressure 121/76, pulse ox is 92% on room air. GENERAL: In no acute distress. Alert and oriented x3. Cooperative on examination. HEENT: Head; normocephalic, atraumatic. Eyes; pupils are equal, round, and reactive to light bilaterally. Extraocular movements are intact bilaterally. Throat; no evidence of erythema or exudates in the posterior pharynx. Has poor dentition. NECK: Supple. Good range of motion. PULMONARY: Clear to auscultation bilaterally. No wheezing, rales, or rhonchi. No crackles appreciated. CARDIOVASCULAR: Positive S1, S2. No murmurs, rubs, or gallops appreciated. ABDOMEN: Soft, nondistended, nontender to palpation. Bowel sounds present. MUSCULOSKELETAL: Strength is 5/5 throughout. No evidence of any muscle deficits on examination. No weakness appreciated. NEUROLOGIC: Cranial nerve 2 through 12 are grossly intact. No evidence of any neurological deficits on exam. SKIN: Intact. Warm to touch. Good cap refill. PSYCHIATRIC: Normal affect and mood. EXTREMITIES: Right TMA appreciated. IMPRESSION: 1. Status post right TMA performed on 11/17/2020. 2. Right foot cellulitis. 3. Severe peripheral artery disease, status post TMA. 4. Type 2 diabetes. 5. History of coronary artery disease with stents. 6. Hypertension. 7. The patient also developed atrial fibrillation with rapid ventricular response. PLAN: Continue with postop care and pain control. Podiatry is monitoring with local wound care. The patient's wound looks good according to Podiatry. The patient will continue with IV antibiotics while here. All cultures were negative. Upon discharge, the patient will be discharged on oral doxycycline 100 mg p.o. b.i.d. x3 weeks as per ID recommendations. We are awaiting a senior living facility placement, which I will discuss with Case Management. Once accepted, the patient can be discharged. The patient developed atrial fibrillation with RVR last night, in which Cardiology was notified and started on oral amiodarone. I am awaiting on final recommendations by Cardiology in terms of the oral regimen needed as well as anticoagulation. Discussed with nursing staff. CONSULTANTS INVOLVED: Podiatry, ID, and Cardiology. MD DAMON Brito/MODElizabeth /[id number]
[2020-01-22] VITALS (9 sets, daily range): BP systolic 124–180; BP diastolic 62–100
--- NOTE | 2020-01-22 | NUR ---
Patient agree to take small amount of insulin.
[2020-01-22] MEDS: AMIODARONE HCL 200 MG TAB PO SCH ×3 (05:25→21:58)
[2020-01-22] MEDS: LEVOTHYROXINE SODIUM 50 MCG TAB PO SCH (05:26)
--- NOTE | 2020-01-22 07:00 | NUR ---
BEDSIDE SHIFT REPORT RECEIVED FROM THE LEAN MANUFACTURING LEADER RN. PT AAOX4. EDUCATED PT ABOUT FALL PRECAUTIONS. CALL LIGHT WITH IN EASY REACH. INSTRUCTED PT TO USE CALL LIGHT FOR ALL THE NEEDS. PT VERBALIZED UNDERSTANDING. BED IS LOW AND LOCKED. SIDE RAILS X2. PT DENIES NEEDS AT THIS TIME.
[2020-01-22] MEDS: INSULIN REGULAR, HUMAN 100 UNIT/1 ML 3ML VIAL SQ SCH ×4 (07:30→21:00)
--- NOTE | 2020-01-22 07:46 | NUR ---
Patient resting quitly at this time. Continue monitor.
[2020-01-22] MEDS: ASPIRIN 81 MG ENTERIC COATED PO SCH (08:56)
[2020-01-22] MEDS: DOCUSATE SODIUM 100 MG CAP PO SCH ×2 (08:56→17:06)
[2020-01-22] MEDS: LOSARTAN POTASSIUM 25 MG TAB PO SCH (08:56)
[2020-01-22] MEDS: VANCOMYCIN 300 ML IV SCH (10:37)
--- NOTE | 2020-01-22 11:05 | Progress Note ---
DATE: 01/22/2020 SUBJECTIVE: This 74-year-old female with past medical history of type 2 diabetes, peripheral neuropathy, peripheral vascular disease, and gangrene with postoperative day #4, right transmetatarsal amputation. The patient is seen at bedside this morning. She relates to improvement of pain to the right foot and constipation. The patient appears to be frustrated with her discharge planning. The patient currently denies nausea, vomiting, fever, chills, chest pain, or shortness of breath. PHYSICAL EXAMINATION: GENERAL: Alert and oriented x3, in no apparent distress. VITAL SIGNS: Today, temperature is 98.3, heart rate is 70, respiratory rate 18, blood pressure 143/71, and pulse ox is 98% on room air. Problem focused lower extremity physical exam: VASCULAR: Dorsalis pedis and posterior tibial pulses are nonpalpable to right lower extremity. Capillary refill time is delayed to the stump site. Negative erythema, edema, or drainage is noted. NEUROLOGICAL: Sensation is absent to light touch bilateral. MUSCULOSKELETAL: Right transmetatarsal amputation, left hallux valgus, dorsally contracted digits. DERMATOLOGICAL: Incision site is noted to the patient's right stump. Sutures are in place and intact. No evidence of wound dehiscence. No local acute signs of infection. Superficial duskiness is noted along the central and lateral aspect of the incision site. We will continue to monitor. A superficial ulceration noted to the plantar aspect of the patient's left metatarsophalangeal joint, which is 100% granular with no local acute signs of infection. LABORATORY DATA: No new labs today. ASSESSMENT: 1. Right foot gangrene, osteomyelitis, postop day #4, right transmetatarsal amputation. 2. Peripheral vascular disease. 3. Type 2 diabetes with peripheral neuropathy. 4. Left foot ulceration, stable. PLAN: The patient was seen and evaluated. Discussed condition and treatment options with the patient in detail. Right foot dressing was changed today with Betadine wet-to-dry. No local acute signs of infection are noted. Left foot dressing was changed today with Xeroform, 4x4s, Kerlix, and tape. Again, recommended local wound care. Infectious Disease is recommending oral antibiotics, which is appropriate at this point due to negative cultures. The patient appears to be frustrated with her hospital stay and postoperative course and relates that she would like to be discharged home. Discussed with the patient, I would not recommend that, as she is likely to ambulate prematurely causing wound dehiscence, which would likely lead to kcohs-guh-nwus amputation. Discussed with the patient wound may fail regardless which would lead to ofibx-hsx-bdhn amputation, but highly would recommend going to a alf facility or long-term acute care for postoperative monitoring. Discussed case with case management and case management reveals they are working on multiple places for disposition and will likely know the answer by the end of the day. The patient is stable to be discharged from Podiatry Service to alf facility with local wound care instructions to be Betadine wet-to-dry dressing changes to the right foot, Xeroform dressing changes to the left foot and will follow up in the office approximately 5 days to one week after discharge. KARO Gray/YURI /[id number]
--- NOTE | 2020-01-22 11:28 | NUR ---
PAGED DR. HOU PER DR. CUADRA REGARDING STARTING LOVENOX. WAITING FOR THE RESPONSE FROM THE
--- NOTE | 2020-01-22 11:34 | NUR ---
OKAY TO START LOVENOX PER DR. HOU.
[2020-01-22] MEDS: ENOXAPARIN INJ 80 MG/0.8 ML SYR SC SCH ×2 (11:37→21:00)
[2020-01-22] MEDS: HYDRALAZINE HCL 20 MG/ML VIAL IV PRN (12:46)
[2020-01-22] MEDS: CEFTRIAXONE SOD 1 GM/NS 50 ML 50 ML IV SCH (17:06)
--- NOTE | 2020-01-22 17:10 | NUR ---
STILL PENDING AUTH, NOT APPROVED YET PER FACILITY
[2020-01-22] MEDS: HYDROMORPHONE 1MG/1ML INJ IV PRN (18:05)
--- NOTE | 2020-01-22 19:00 | NUR ---
BEDSIDE SHIFT REPORT GIVEN TO THE TRANSLATOR INTERPRETER RN. PT DENIED FURTHER NEEDS.
[2020-01-23] VITALS: BP 129/68
[2020-01-23] MEDS: HYDROMORPHONE 1MG/1ML INJ IV PRN (00:19)
--- NOTE | 2020-01-23 01:10 | Progress Note ---
DATE: 01/22/2020 Medicine Progress Note SUBJECTIVE: The patient's pain is well tolerable, status post right TMA. I spoke with Cardiology, recommends oral amiodarone 400 mg daily upon discharge with oral Xarelto 20 mg daily starting tomorrow. She has not been accepted to a correction facility as of yet. Once she has been accepted, she will be discharged. No overnight events. LABORATORY DATA: Lab findings show CBC stable, chemistry stable. MICROBIOLOGY: None. PHYSICAL EXAMINATION: VITAL SIGNS: Temperature is 99, pulse 90, respiratory rate is 18, blood pressure 134/73, pulse ox is 96% on room air. GENERAL: In no acute distress. Alert and oriented x3. Cooperative on examination. HEENT: Head; normocephalic, atraumatic. Eyes; pupils are equal, round, and reactive to light bilaterally. Extraocular movements are intact bilaterally. Throat; no evidence of erythema or exudates in the posterior pharynx. Has poor dentition. NECK: Supple. Good range of motion. PULMONARY: Clear to auscultation bilaterally. No wheezing, rales, or rhonchi. No crackles appreciated. CARDIOVASCULAR: Positive S1, S2. No murmurs, rubs, or gallops appreciated. ABDOMEN: Soft, nondistended, nontender to palpation. Bowel sounds present. MUSCULOSKELETAL: Strength is 5/5 throughout. No evidence of any muscle deficits on examination. No weakness appreciated. NEUROLOGIC: Cranial nerve 2 through 12 are grossly intact. No evidence of any neurological deficits on exam. SKIN: Intact. Warm to touch. Good cap refill. PSYCHIATRIC: Normal affect and mood. EXTREMITIES: She has a right TMA. IMPRESSION: 1. Status post right TMA performed on 11/17/2020. 2. Right foot cellulitis. 3. Severe peripheral artery disease, status post TMA performed on 11/17/2020. 4. Type 2 diabetes. 5. History of coronary artery disease with stents. 6. Hypertension. 7. Atrial fibrillation with RVR -- rate control. PLAN: At this time, continue with postop care and pain control. Still pending correction facility placement. She is on IV antibiotics. She will be discharged on oral doxycycline 100 mg p.o. b.i.d. x3 weeks as per ID recommendations. As for the atrial fibrillation, I spoke with Cardiology, Dr. Whitney recommends amiodarone 400 mg daily and Xarelto 20 mg daily starting tomorrow and she is cleared for discharge. I am now waiting for correction facility bed. Once she has been approved, she can be discharged. MD DAMON Brito/MODL /[id number]
[2020-01-23 04:00] VITALS: BP 142/65
[2020-01-23] MEDS: AMIODARONE HCL 200 MG TAB PO SCH ×3 (06:00→22:07)
[2020-01-23] MEDS: LEVOTHYROXINE SODIUM 50 MCG TAB PO SCH (06:00)
--- NOTE | 2020-01-23 06:24 | NUR ---
Blood drawn via PICC and sent to lab. Flushed PICC with 10 cc ns.
[2020-01-23 06:35] LABS: BASOPHILS % 0.6 % (0.0-1.0); EOSINOPHILS # (AUTO) 0.3 (0.0-0.4); EOSINOPHILS % 5.1 % (0.0-6.0); HEMATOCRIT 35.8 % (34.2-44.1); HEMOGLOBIN 11.1 g/dL (12.0-16.0); LYMPHOCYTES # (AUTO) 1.7 (1.0-3.2); LYMPHOCYTES % 26.1 % (18.0-39.1); MEAN CORPUSCULAR HEMOGLOBIN 26.9 pg (28-32); MEAN CORPUSCULAR VOLUME 86.7 fL (81-99); MONOCYTES # (AUTO) 0.5 (0.2-0.8); MONOCYTES % 7.8 % (4.4-11.3); NEUTROPHILS # (AUTO) 3.9 (2.1-6.9); NEUTROPHILS % 60.1 % (38.7-80.0); PLATELET COUNT 204 x10e3/uL (140-360); RED BLOOD COUNT 4.13 x10e6/uL (3.6-5.1); RED CELL DISTRIBUTION WIDTH 14.2 % (11.7-14.4)
[2020-01-23 06:58] LABS: ANION GAP 8.2 mmol/L (8-16); CALCIUM 8.7 mg/dL (8.4-10.2); CREATININE, SERUM 0.99 mg/dL (0.57-1.11); POTASSIUM 4.2 mmol/L (3.5-5.1)
[2020-01-23] MEDS: INSULIN REGULAR, HUMAN 100 UNIT/1 ML 3ML VIAL SQ SCH ×4 (07:30→21:00)
[2020-01-23 07:56] VITALS: BP 173/66
[2020-01-23] MEDS: ASPIRIN 81 MG ENTERIC COATED PO SCH (09:36)
[2020-01-23] MEDS: DOCUSATE SODIUM 100 MG CAP PO SCH ×2 (09:37→17:49)
[2020-01-23] MEDS: LOSARTAN POTASSIUM 25 MG TAB PO SCH (09:37)
[2020-01-23] MEDS: ENOXAPARIN INJ 80 MG/0.8 ML SYR SC SCH ×2 (09:38→21:21)
[2020-01-23 09:59] VITALS: BP 173/66
--- NOTE | 2020-01-23 10:47 | NUR ---
CALLED AND SPOKE WITH [facility] AND ASKED WHAT IS THE HOLD UP, THEY STATE THAT THERE IS NOT A PERSON TO CALL IT IS A COMPUTER SYSTEM AND UNABLE TO SEE ANYTHING BUT PENDING STATUS, THEY STATES NO NEW NOTES NEEDED AT THIS TIME. THEY STATE THEY ARE 95% SURE WILL GET AUTH TODAY AND THEY WILL CALL ME DIRECTLY TO BE ABLE TO PLACE PT IN FACILITY. UPDATED PT.
[2020-01-23] MEDS: VANCOMYCIN 300 ML IV SCH (11:49)
[2020-01-23 15:27] VITALS: BP 147/82
[2020-01-23] MEDS: CEFTRIAXONE SOD 1 GM/NS 50 ML 50 ML IV SCH (17:49)
--- NOTE | 2020-01-23 19:15 | NUR ---
Report given to early learning teacher. Respiration even and unlabored without SOB. Call light in reach.
[2020-01-23 20:10] VITALS: BP 147/82
--- NOTE | 2020-01-23 20:40 | NUR ---
RECEIVED PT IN BED AOX3 .RESPIRATIONS ARE EVEN AND UNLABORED .FAMILY AT THE BEDSIDE DENIES PAIN .CALL LIGHT WITH IN REACH .CONTINUE TO MONITOR
--- NOTE | 2020-01-24 01:25 | Progress Note ---
DATE: 01/23/2020 Medicine Progress Note SUBJECTIVE: Still awaiting on senior care facility. She is otherwise doing well. No overnight events. PHYSICAL EXAMINATION: VITAL SIGNS: Temperature is 97.2, pulse 62, respiratory rate is 19, blood pressure 147/82, pulse ox is 96% on room air. GENERAL: No acute distress, alert and oriented x3, cooperative on examination. HEENT: Normocephalic, atraumatic. Eyes; pupils are equal, round, and reactive to light bilaterally. Extraocular muscles intact. Throat; no evidence of erythema or exudates in the posterior pharynx. Has poor dentition. NECK: Supple. Good range of motion. PULMONARY: Clear to auscultation bilaterally. No wheezing, rales, or rhonchi. No crackles appreciated. CARDIOVASCULAR: Positive S1 and S2. No murmurs, rubs, or gallops. ABDOMEN: Soft, nondistended, nontender to palpation. Bowel sounds present. Cell strength is 5/5 throughout. MUSCULOSKELETAL: Strength is 5/5 throughout. No evidence of any muscle deficits on examination. No weakness appreciated. NEUROLOGIC: Cranial nerves 2 through 12 grossly intact. No evidence of any neurological deficits on exam. SKIN: Intact. Warm to touch. Good cap refill. PSYCHIATRIC: Normal affect and mood. EXTREMITIES: She has a right TMA. LABORATORY DATA: Labs show white count 6.5, hemoglobin 11, hematocrit 35, platelets of 204. Chemistry; sodium 137, potassium 4.2, chloride 105, bicarb 20, anion gap is 8.2, BUN 11, creatinine is 0.99, glucose level [id number] was 186. MICROBIOLOGY: All cultures were negative. IMPRESSION: 1. Status post right transmetatarsal amputation, performed on 01/18/2020. 2. Right foot cellulitis. 3. Severe peripheral arterial disease, status post transmetatarsal amputation, performed on 01/18/2020. 4. Type 2 diabetes. 5. History of coronary artery disease with stents. 6. Hypertension. 7. Atrial fibrillation with rapid ventricular response-rate controlled. PLAN: Continue with postop care and pain control. The patient is doing well. I have been waiting on senior care facility placement for more than a week now. Once she is accepted, she can be discharged. Continue with IV antibiotics, discharge on oral doxycycline for 3 weeks, for which the prescriptions have been written and placed in the chart. As for her atrial fibrillation, I spoke with Cardiology. Continue with amiodarone 400 mg daily and Xarelto 20 mg daily upon discharge. Continue with same plan of care while she is here. Pending senior care facility placement. MD DAMON Brito/MODL /[id number]
[2020-01-24 04:00] VITALS: BP 142/66
--- NOTE | 2020-01-24 06:12 | NUR ---
PT C/O PAIN AND GIVEN DILAUDID X1 .CALL LIGHT WITH IN REACH .CONTINUE TO MONITOR
[2020-01-24] MEDS: LEVOTHYROXINE SODIUM 50 MCG TAB PO SCH (06:41)
--- NOTE | 2020-01-24 07:00 | NUR ---
Received patient lying in bed with eyes open. Respiration even and unlabored without SOB. Call light in reach. Family at bedside. Denies pain at this time.
--- NOTE | 2020-01-24 07:23 | NUR ---
BEDSIDE REPORT GIVEN TO THE ONCOMING NURSE
[2020-01-24] MEDS: INSULIN REGULAR, HUMAN 100 UNIT/1 ML 3ML VIAL SQ SCH (07:30)
[2020-01-24 08:00] VITALS: BP 142/66
[2020-01-24 08:14] VITALS: BP 142/92
--- NOTE | 2020-01-24 08:32 | NUR ---
CALLED AND SPOKE WITH REP AGAIN ABOUT PENDING STATUS, STATES ON PHONE AND WILL LET KNOW SOON GETS AN ANSWER.
--- NOTE | 2020-01-24 08:45 | NUR ---
Patient verbalized wanting to leave AMA. Education given about the risks of leaving AMA, patient insisted and became verbally loud. Daughter at bedside. ALEJANDRA Jj reinforced education and risks about her AMA decision. Patient is adamant. Right upper arm PICC discontinued, catheter tip intact, no bleeding noted. Occlusive dressing applied. All personal belongings are taken accompanied by daughter.
--- NOTE | 2020-01-24 11:13 | Progress Note ---
DATE: 01/24/2020 SUBJECTIVE: This is a 74-year-old female with past medical history of type 2 diabetes, peripheral neuropathy, peripheral vascular disease and gangrene, who is postoperative day 6 right transmetatarsal amputation. The patient is seen at bedside this morning. The patient appears to be frustrated with the discharge process. Currently does not relate the pain to her right lower extremity. The patient denies nausea, vomiting, fever, chills, chest pain, or shortness of breath. OBJECTIVE: GENERAL: Alert and oriented x3, in no apparent distress. VITAL SIGNS: Today, temperature 97.5, heart rate 86, respiratory rate 17, blood pressure 142/92, pulse ox is 97% on room air. Problem focused lower extremity physical exam: VASCULAR: Dorsalis pedis and posterior tibial pulses are nonpalpable to the right lower extremity. Capillary refill time is delayed to the stump site. Negative edema or drainage is noted. Improvement in erythema to the right lower extremity. NEUROLOGICAL: Sensation is absent to light touch bilateral. MUSCULOSKELETAL: Right transmetatarsal amputation, left hallux valgus dorsally contracted digits. DERMATOLOGICAL: Incision site is noted to the patient's right stump site. Sutures are in place and intact. No evidence of wound dehiscence. No local acute signs of infection. Superficial duskiness is noted along the central lateral aspect of the incision site. We will continue to monitor. Superficial ulceration is noted to the plantar aspect of the patient's left 3rd metatarsophalangeal joint, which is 100% granular. No local acute signs of infection. LABORATORY DATA: White blood cell count of 6.5, hemoglobin 11.1, hematocrit 35.8, and platelet count is 204. Glucose today is 186. ASSESSMENT: 1. Right foot gangrene, osteomyelitis, postoperative day 6, right transmetatarsal amputation. 2. Peripheral vascular disease. 3. Type 2 diabetes and peripheral neuropathy. 4. Left foot ulcerations, stable. PLAN: The patient was seen and evaluated. Discussed condition and treatment options with the patient in detail. Right foot dressing was changed today with Betadine wet-to-dry and the left foot dressing change was performed with Xeroform, Kerlix, and tape. At this point, I had a lengthy discussion with the patient and the patient's daughter about the discharge process. Discussed with the patient. The patient has been cleared for discharge. However, the only thing that is pending is insurance approval to a assisted facility. The patient relates that if she is not approved for a assisted facility, they will be signing on going home against medical advice. My recommendation to her and her family was to continue to pursue a assisted facility for antibiotics, local wound care, and monitoring of ambulatory status. Discussed with the patient she is much higher risk for [id number] amputation at home. The patient expresses understanding, but is very frustrated and is threatening to leave the hospital. KARO Gray/YURI /[id number]
--- NOTE | 2020-01-25 11:54 | Discharge Summary ---
FINAL DISCHARGE DIAGNOSES: 1. Status post right transmetatarsal amputation performed on January 18, 2020. 2. Right foot cellulitis. 3. Severe peripheral artery disease status post TMA performed on 11/17/2020. 4. Type 2 diabetes. 5. History of coronary artery disease with stents. 6. Hypertension. 7. Atrial fibrillation with RVR, new onset. 8. Left against medical advice. CONSULTANTS: We had Podiatry, Infectious Disease, Cardiology. PHYSICAL EXAMINATION: VITAL SIGNS: Temperature is 97.5, pulse 86, respiratory rate 17, blood pressure 142/92, pulse ox 97% on room air. LABORATORY FINDINGS: White count 6.5, hemoglobin 11, hematocrit 35, platelets of 204. CBC reviewed and stable. CK 118. TSH is 2.8. Troponins were negative. Creatinine is 0.99, BUN is 11, potassium is 4.2, bicarbonate was 28. Urinalysis negative. MICROBIOLOGY: Blood cultures negative. Wound cultures were negative. IMAGING STUDIES: Foot x-ray shows no evidence of acute osteomyelitis. If concern remains possible, get MRI of the foot. MRI of the foot shows abnormal soft tissue edema in the distal second toe without associated fluid collection of cortical destruction and underlying bone. These findings are likely secondary to cellulitis. Arterial Doppler of the lower extremities shows absent flow in the distal right SFA, popliteal, anterior tibial and posterior tibial arteries. Absent flow in the left anterior tibial and left posterior tibial arteries. HOSPITAL COURSE: This is a 74-year-old female, who came into the ED with complaints of right foot pain and worsening discoloration ongoing for several days prior to arrival to the hospital admission. The patient has a history of severe PAD and is being monitored and evaluated by Dr. Whitney, Cardiology. The patient has had angiograms in the past as well as arterial Dopplers that were performed as an outpatient and was told on several occasions that the patient does need amputation, preferably BKA. The patient refused on several attempts in the past. While here, Podiatry and Cardiology were consulted. Podiatry recommends right BKA, but the patient refused, instead agreed to right TMA. While here, the patient was on IV antibiotics. I reviewed the case with Cardiology. Arterial Doppler with results above. At this time, he does recommend at least a BKA, but the patient refused and instead wanted a TMA. At this time, Podiatry did perform a TMA on 11/17/2020. He did discuss with the family that the likelihood of this being well healed may be highly unlikely, but since the patient wants a TMA instead of a BKA, he was willing to go ahead and attempt this procedure. He did discuss with them that as long as she is able to maintain rest and not ambulate on it, that she may have a good chance of healing, but no guarantee. Despite all of those recommendations, the patient still wanted to have a transmetatarsal amputation, which was performed. She was on IV antibiotics and being managed by Infectious Disease. While here, I also discussed this case with Cardiology as well with results above on arterial Doppler and recommended BKA, but the patient refused, and still wanted a TMA. At this time, he recommends with cardioprotective medications. She did develop atrial fibrillation with RVR while here in the hospital stay and was loaded up with oral amiodarone and started on full-dose anticoagulation. For discharge, she was supposed to be discharged on amiodarone 400 mg a day, Eliquis 5 mg p.o. b.i.d. as per Cardiology recommendations. The patient was doing well and we will wait for jail facility, but the insurance company took significant period of time before we were able to get an answer. On 01/24/2020, the patient wanted to leave and left against medical advice. The patient signed appropriate documentation that was left in the chart. We highly recommended for the patient to stay longer and go to jail facility for further monitoring, but the patient refused. The patient left against medical advice. MEDICATIONS: Left against medical advice. DISPOSITION: Left against medical advice. In the event of any worsening symptoms, the patient is advised to come back to the ED for further evaluation. Discharge summary took greater than 35 minutes. The patient left against medical advice. MD DAMON Brito/YURI /[id number]
== END 2020-01-24 08:55 | disposition left against medical advice (07) | DRG 580 ==
LOC: ER 10:17 → ERHOLD 12:34 → MED/SURG3 16:21
PROVIDERS: ADMIT Internal Medicine; ATTEND Internal Medicine
PROC: 02HV33Z Insertion of Infusion Device into Superior Vena Cava, Percutaneous Approach (ICD-10-PCS; 2020-01-15)
PROC: 0Y6M0ZC Detachment at Right Foot, Partial 3rd Ray, Open Approach (ICD-10-PCS; 2020-01-18)
PROC: 0Y6M0ZD Detachment at Right Foot, Partial 4th Ray, Open Approach (ICD-10-PCS; 2020-01-18)
PROC: 0Y6M0ZF Detachment at Right Foot, Partial 5th Ray, Open Approach (ICD-10-PCS; 2020-01-18)
PROC: 0Y6M0Z9 Detachment at Right Foot, Partial 1st Ray, Open Approach (ICD-10-PCS; principal; 2020-01-18 06:45)
PROC: 0Y6M0ZB Detachment at Right Foot, Partial 2nd Ray, Open Approach (ICD-10-PCS; 2020-01-18 06:45)
DX: L03.115 Cellulitis of right lower limb (principal); L97.929 Non-pressure chronic ulcer of unspecified part of left lower leg with unspecified severity; N17.9 Acute kidney failure, unspecified; I10 Essential (primary) hypertension; Z79.4 Long term (current) use of insulin; Z95.820 Peripheral vascular angioplasty status with implants and grafts; E03.9 Hypothyroidism, unspecified; I25.10 Atherosclerotic heart disease of native coronary artery without angina pectoris; I48.91 Unspecified atrial fibrillation; E78.00 Pure hypercholesterolemia, unspecified; E11.51 Type 2 diabetes mellitus with diabetic peripheral angiopathy without gangrene
CPT/HCPCS: 36415; 36569; 80048; 80053; 80202; 81001; 82550; 82553; 82948; 83605; 83735; 84436; 84443; 84479; 84484; 85025; 85610; 85651; 85730; 86140; 87040; 87071; 87075; 87205; 88304; 88307; 88311; 93005; 93925; 97139; 99284; J0360; J0696; J1100; J1170; J1650; J1817; J1885; J2001; J2270; J2405; J3010; J3370; J7030

== ENCOUNTER 2020-09-07 13:14 | Inpatient (IN) | payer MEDICARE ==
[~2020-09-07] VITALS: Ht 162.6 cm; Wt 90.9 kg
[~2020-09-07 13:14] MED LIST changes: +GLIMEPIRIDE4 MG PO; +LEVOTHYROXINE50 MCG PO; +LOSARTAN POTASS25 MG PO
[2020-09-07] MEDS ORDERED: VANCOMYCIN 1GM/NS 250 ML 250 ML IV ONE (14:00)
[2020-09-07] MEDS ORDERED: CEFEPIME 1GM/NS 0.9% 50 ML 50 ML IV ONE ×2 (14:00→14:06)
[2020-09-07] MEDS ORDERED: VANCOMYCIN 1GM/NS 250 ML 250 ML ONE (14:06)
[2020-09-07 14:14] LABS: BASOPHILS # (AUTO) 0.1 (0.0-0.1); BASOPHILS % 1.1 % (0.0-1.0); EOSINOPHILS # (AUTO) 0.1 (0.0-0.4); EOSINOPHILS % 1.2 % (0.0-6.0); HEMATOCRIT 34.3 % (34.2-44.1); HEMOGLOBIN 10.5 g/dL (12.0-16.0); LYMPHOCYTES % 23.7 % (18.0-39.1); MEAN CORPUSCULAR HEMOGLOBIN 24.5 pg (28-32); MEAN CORPUSCULAR HGB CONC 30.6 g/dL (31-35); MONOCYTES # (AUTO) 0.7 (0.2-0.8); MONOCYTES % 8.3 % (4.4-11.3); NEUTROPHILS # (AUTO) 5.5 (2.1-6.9); NEUTROPHILS % 64.9 % (38.7-80.0); PLATELET COUNT 210 x10e3/uL (140-360); RED BLOOD COUNT 4.29 x10e6/uL (3.6-5.1); RED CELL DISTRIBUTION WIDTH 17.6 % (11.7-14.4)
[2020-09-07 14:39] LABS: ALBUMIN/GLOBULIN RATIO 0.8 (0.8-2.0); ANION GAP 17.3 mmol/L (8-16); CALCIUM 8.7 mg/dL (8.4-10.2); CREATININE, SERUM 1.28 mg/dL (0.57-1.11); POTASSIUM 4.3 mmol/L (3.5-5.1)
[2020-09-07] MEDS ORDERED: SODIUM CHLORIDE 0.9% 1000ML 1,000 ML IV ONE (15:00)
[2020-09-07] MEDS ORDERED: FENTANYL CITRATE/PF 100MCG/2 ML INJ IV ONE (16:00)
[2020-09-07] MEDS ORDERED: ONDANSETRON HCL INJ 2MG/ML 2ML 2 MG/ML VIAL IV STA (16:55)
[2020-09-07] MEDS ORDERED: ONDANSETRON HCL INJ 2MG/ML 2ML 2 MG/ML VIAL ONE (17:05)
[2020-09-07 17:23] LABS: INR 1.59; PROTHROMBIN TIME 19.7 seconds (11.9-14.5)
[2020-09-07 17:28] VITALS: BP 139/98
[2020-09-07 18:34] VITALS: BP 139/98
[2020-09-07] MEDS ORDERED: DEXTROSE 50% SYRINGE 50 ML IV PRN (19:15)
[2020-09-07] MEDS ORDERED: ACETAMINOPHEN 325 MG TAB PO PRN (19:15)
[2020-09-07 20:52] VITALS: BP 138/90
[2020-09-07] MEDS: INSULIN REGULAR, HUMAN 100 UNIT/1 ML 3ML VIAL SQ SCH (21:50)
[2020-09-07] MEDS: SODIUM CHLORIDE 0.9% 1000ML 1,000 ML IV SCH (22:00)
[2020-09-07] MEDS: MORPHINE SULFATE INJ 4 MG/ML INJ 1ML IV PRN (23:20)
[2020-09-08] VITALS (9 sets, daily range): BP systolic 106–147; BP diastolic 63–92
[2020-09-08 05:54] LABS: BASOPHILS # (AUTO) 0.1 (0.0-0.1); BASOPHILS % 1.1 % (0.0-1.0); EOSINOPHILS # (AUTO) 0.1 (0.0-0.4); EOSINOPHILS % 2.1 % (0.0-6.0); HEMATOCRIT 30.5 % (34.2-44.1); HEMOGLOBIN 9.4 g/dL (12.0-16.0); LYMPHOCYTES # (AUTO) 1.7 (1.0-3.2); MEAN CORPUSCULAR HEMOGLOBIN 24.2 pg (28-32); MEAN CORPUSCULAR HGB CONC 30.8 g/dL (31-35); MEAN CORPUSCULAR VOLUME 78.6 fL (81-99); MONOCYTES # (AUTO) 0.8 (0.2-0.8); MONOCYTES % 11.6 % (4.4-11.3); NEUTROPHILS % 59.7 % (38.7-80.0); PLATELET COUNT 165 x10e3/uL (140-360); RED BLOOD COUNT 3.88 x10e6/uL (3.6-5.1); RED CELL DISTRIBUTION WIDTH 17.8 % (11.7-14.4)
[2020-09-08] MEDS: LEVOTHYROXINE SODIUM 50 MCG TAB PO SCH (06:00)
[2020-09-08 06:17] LABS: ALBUMIN 2.5 g/dL (3.5-5.0); ALBUMIN/GLOBULIN RATIO 0.8 (0.8-2.0); ANION GAP 13.1 mmol/L (8-16); CALCIUM 8.2 mg/dL (8.4-10.2); CREATININE, SERUM 1.13 mg/dL (0.57-1.11); POTASSIUM 4.1 mmol/L (3.5-5.1)
[2020-09-08] MEDS: INSULIN REGULAR, HUMAN 100 UNIT/1 ML 3ML VIAL SQ SCH ×4 (07:30→21:00)
[2020-09-08] MEDS: CEFEPIME 1GM/NS 0.9% 50 ML 50 ML IV SCH ×2 (07:53→21:31)
[2020-09-08] MEDS: ASPIRIN 81 MG ENTERIC COATED PO SCH (07:54)
[2020-09-08] MEDS: ONDANSETRON HCL INJ 2MG/ML 2ML 2 MG/ML VIAL IV PRN ×2 (07:54→18:28)
[2020-09-08] MEDS ORDERED: CEFEPIME HCL 1 GM VIAL IV SCH (14:00)
[2020-09-08] MEDS ORDERED: CEFEPIME 1GM/NS 0.9% 50 ML 50 ML IV SCH (14:00)
[2020-09-08] MEDS: METRONIDAZOLE 500MG/NS 100ML 100 ML IV SCH ×2 (14:58→22:01)
[2020-09-08] MEDS: VANCOMYCIN 1GM/NS 250 ML 250 ML IV SCH (16:16)
[2020-09-08] MEDS: METOPROLOL TARTRATE 25 MG TAB PO SCH ×2 (16:16→21:00)
[2020-09-08] MEDS: SODIUM CHLORIDE 0.9% 1000ML 1,000 ML IV SCH (18:28)
[2020-09-08] MEDS: MORPHINE SULFATE INJ 4 MG/ML INJ 1ML IV PRN (18:28)
[2020-09-09] VITALS (8 sets, daily range): BP systolic 102–124; BP diastolic 60–82
[2020-09-09] MEDS: METRONIDAZOLE 500MG/NS 100ML 100 ML IV SCH ×2 (05:00→17:00)
[2020-09-09] MEDS: LEVOTHYROXINE SODIUM 50 MCG TAB PO SCH (05:00)
[2020-09-09] MEDS: ONDANSETRON HCL INJ 2MG/ML 2ML 2 MG/ML VIAL IV PRN (06:35)
[2020-09-09] MEDS ORDERED: PROMETHAZINE 12.5MG/ NACL 0.9% 12.5 MG/50 ML BAG IV PRN (06:45)
[2020-09-09 07:49] LABS: CALCIUM 8.4 mg/dL (8.4-10.2); CREATININE, SERUM 1.38 mg/dL (0.57-1.11)
[2020-09-09] MEDS: INSULIN REGULAR, HUMAN 100 UNIT/1 ML 3ML VIAL SQ SCH ×3 (08:30→16:30)
[2020-09-09] MEDS: CEFEPIME 1GM/NS 0.9% 50 ML 50 ML IV SCH (08:34)
[2020-09-09] MEDS: ASPIRIN 81 MG ENTERIC COATED PO SCH (08:43)
[2020-09-09] MEDS: METOPROLOL TARTRATE 25 MG TAB PO SCH (08:43)
[2020-09-09] MEDS: SODIUM CHLORIDE 0.9% 1000ML 1,000 ML IV SCH (13:45)
[2020-09-09] MEDS: VANCOMYCIN 1GM/NS 250 ML 250 ML IV SCH (17:52)
== END 2020-09-09 21:00 | DRG 464 ==
LOC: ER 13:45 → ERHOLD 15:10 → MED/SURG3 17:10
PROVIDERS: ADMIT Internal Medicine; ATTEND Internal Medicine
PROC: 0JBN0ZZ Excision of Right Lower Leg Subcutaneous Tissue and Fascia, Open Approach (ICD-10-PCS; principal; 2020-09-09)
DX: T87.43 Infection of amputation stump, right lower extremity (principal); M86.9 Osteomyelitis, unspecified; L02.214 Cutaneous abscess of groin; N17.9 Acute kidney failure, unspecified; E11.52 Type 2 diabetes mellitus with diabetic peripheral angiopathy with gangrene; I96 Gangrene, not elsewhere classified; L97.428 Non-pressure chronic ulcer of left heel and midfoot with other specified severity; E11.69 Type 2 diabetes mellitus with other specified complication; E03.9 Hypothyroidism, unspecified; I25.10 Atherosclerotic heart disease of native coronary artery without angina pectoris; E11.621 Type 2 diabetes mellitus with foot ulcer; Z79.899 Other long term (current) drug therapy; Z11.59 Encounter for screening for other viral diseases; E86.0 Dehydration; I48.0 Paroxysmal atrial fibrillation; Z95.5 Presence of coronary angioplasty implant and graft; I11.9 Hypertensive heart disease without heart failure; E78.5 Hyperlipidemia, unspecified; E66.9 Obesity, unspecified; Z68.31 Body mass index [BMI] 31.0-31.9, adult; T87.81 Dehiscence of amputation stump
CPT/HCPCS: 36415; 76770; 80048; 80053; 80061; 82948; 83036; 83605; 85025; 85610; 85651; 85730; 86140; 87040; 93005; 96361; 97139; 97605; 99251; 99284; J0692; J1817; J2270; J2405; J3010; J3370; J7030; U0002